=== PATIENT | female | born 1990 | race Caucasian/White ===

== ENCOUNTER 2020-01-05 15:38 | Emergency (ER) | payer MEDICAID, SELFPAY ==
[2020-01-05 15:46] VITALS: BP 149/85; PULSE 133; RESP 18; TEMP 37.1; O2SAT 99; BMI 27.4
--- NOTE | 2020-01-05 15:55 | XRR_ITS ---
PROCEDURE INFORMATION: Exam: XR Chest, 1 View Exam date and time: 01/05/2020 4:55 PM Age: 29 years old Clinical indication: Shortness of breath; Patient HX: Smoker; Additional info: Med clearance TECHNIQUE: Imaging protocol: XR of the chest Views: 1 view. COMPARISON: CR Chest 1 [place] [id number] 03/18/2016 3:08 AM FINDINGS: Lungs: Unremarkable. No consolidation. Pleural space: Unremarkable. No pleural effusion. No pneumothorax. Heart/Mediastinum: Unremarkable. No cardiomegaly. Bones/joints: Unremarkable. XR/XR chest 1V portable [id number] IMPRESSION: No acute findings.
[2020-01-05 16:04] VITALS: RESP 20
--- NOTE | 2020-01-05 16:12 | ED_ITS ---
Documented by User: River Cook DO 01/05/20 16:29 HPI - Psych General: Chief Complaint: Psychiatric Symptoms Stated Complaint: mhe Time Seen by Provider: 01/05/20 15:54 History of Present Illness: HPI Narrative: Patient extremely anxious and tearful in the emergency department. She states that she has been having thoughts of suicide for as long as 2 year she emptied the emergency room today because she states that she feels as if she is losing her mind and she cannot take that anymore. Patient has a prior history of suicidal attempt for which she was seen in the [facility]. MD complaint: suicidal ideation and feels depressed Onset (ago): year(s) Duration: constant and getting worse History of same: Yes Relieving factors: none Context: not taking psychiatric medications Associated psychiatric symptoms: depression and suicidal ideation Associated symptoms: Reports suicidal ideation and racing thoughts Treatments prior to arrival: none If self harm: admits thoughts of self harm Review of Systems General: Reports: 10 or more systems reviewed and unremarkable except in HPI and below Psych: Reports: suicidal ideation Physical Exam Const: COMMON NORMALS: patient oriented x3, no limitations and alert GENERAL APPEARANCE: disheveled HENMT: COMMON NORMALS: normocephalic, atraumatic, external ears normal and Normal external nose present HEAD & SCALP: normocephalic and atraumatic FACE & SINUS: normal facial exam NOSE: Normal external nose present EXTERNAL EAR: Yes external ears normal MOUTH: Normal oral and palatal mucosa present Neck/C-Spine: COMMON NORMALS: full ROM, no lymphadenopathy, supple, no meningeal signs and no JVD GENERAL: Yes normal visual inspection Resp: COMMON NORMALS: normal respiratory effort, No retractions, No use of accessory muscles and clear to auscultation bilaterally AUSCULTATION: clear to auscultation bilaterally Cardio: COMMON NORMALS: no JVD, regular rate and regular rhythm RATE: regular rate RHYTHM: regular rhythm GI: COMMON NORMALS: Normal to inspection, nondistended, normoactive bowel sounds present, Soft to palpation, non-tender, No hepatosplenomegaly present and no masses INSPECTION: Yes normal to inspection AUSCULTATION: Yes no rmoactive bowel sounds PALPATION: Yes Soft to palpation and Yes No hepatosplenomegaly present PERCUSSION: normal to percussion : COMMON NORMALS: Yes no CVA tenderness and Yes normal external appearance BLADDER/KIDNEY EXAM: Yes no CVA tenderness Back/Pelvis: COMMON NORMALS: no CVA tenderness, thoracic and lumbar spine normal to inspection, no thoracic nor lumbar tenderness, thoraco-lumbar ROM normal and straight leg raise negative bilaterally Extremity: COMMON NORMALS: normal to inspection, full ROM, capillary refill normal, no joint enlargement, no clubbing, cyanosis or edema, no calf tenderness and no pedal edema Neuro: COMMON NORMALS: patient oriented x3, moves all extremities, no focal motor deficits and no sensory deficits noted SENSORIUM/ORIENTATION: Yes alert MENINGEAL SIGNS: Yes no meningeal signs Psych: COMMON NORMALS: mental status grossly normal APPEARANCE: Yes disheveled ATTITUDE: Yes agitated ACTIVITY/MOTOR BEHAVIOR: Yes appropriate eye contact, Yes disorganized behavior and Yes restless SPEECH: Yes Pressured speech present MOOD & AFFECT: Yes depressed mood and Yes tearful THOUGHT PROCESS: disorganized THOUGHT CONTENT: Yes Suicidality present INSIGHT: Limited insight present (Psych) JUDGEMENT: Poor judgement present (Psych) Skin: COMMON NORMALS: no rashes or lesions noted, no wounds, turgor normal, no jaundice, no petechiae and no mottling GENERAL SKIN EXAM: no rashes or lesions noted and turgor normal MDM - Psych Lab Data: Labs: Lab Results 01/05/20 01/05/20 01/05/20 Range/Units 16:04 16:04 16:04 WBC (4.0-10.0) 10^3/ uL RBC (4.1-5.3) 10^6/u L Hgb (11.5-15.3) g/dL Hct (37.0-47.0) % MCV (81-99) fL MCH (28.0-34.0) pg MCHC (30.0-36.0) g/dL RDW (12.1-15.1) % Plt Count (130-400) 10^3/c mm MPV (7.4-10.4) fL Neut % (Auto) % Lymph % (Auto) % [place] % (Auto) % Eos % (Auto) % Baso % (Auto) % Neut # (Auto) (1.8-7.7) 10^3/u L Lymph # (Auto) (0.8-4.8) 10^3/u L [place] # (Auto) (0.2-0.9) 10^3/u L Eos # (Auto) (0.0-0.8) 10^3/u L Baso # (Auto) (0.0-0.1) 10^3/u L Nucleated RBC % (a uto) % Nucleated RBCs # /100WBC PT (10.5-13.3) SECO NDS INR (0.8-1.2) Sodium (136-145) mmol/L Potassium (3.5-5.1) mmol/L Chloride (98-107) mmol/L Carbon Dioxide (22-29) mmol/L Anion Gap (5-19) BUN (6-20) mg/dL Creatinine (0.5-0.9) mg/dL GFR Calculation (90-130) mL/min Glucose (65-115) mg/dL Calculated Osmolal ity (285-295) mOsm/k g Calcium (8.5-10.5) mg/dL Total Bilirubin (0.15-1.2) mg/dL AST (0-32) U/L ALT (0-33) U/L Alkaline Phosphata se (35-105) IU/L Total Protein (6.6-8.7) g/dL Albumin (3.5-5.2) g/dL Globulin (1.3-4.6) g/dL TSH (0.27-4.20) uIU/ mL HCG, Qual Negative (Negative) Urine Color Yellow (Yellow) Urine Appearance Clear (CLEAR) Urine pH 5 (5-7) Ur Specific Gravit y 1.005 (1.005-1.030) Urine Protein Neg (Negative) Urine Glucose (UA) Norm (Normal) Urine Ketones Negative (Negative) Urine Blood Neg (Negative) Urine Nitrate Negative (Negative) Urine Bilirubin Neg (NEGATIVE) Urine Urobilinogen Norm (Negative) mg/dL Ur Leukocyte Carrol ase Negative (Negative) Salicylates (3-10) mg/dL Urine Opiates Scre en Negative (Negative) ng/mL Acetaminophen (10-30) ug/mL Ur Barbiturates Sc reen Negative (Negative) ng/mL Ur Phencyclidine S crn Negative (Negative) ng/mL Ur Amphetamines Sc reen Negative (Negative) ng/mL U Benzodiazepines Scrn Negative (Negative) ng/mL Urine Cocaine Scre en Negative (Negative) ng/mL U Marijuana (THC) Screen Positive H (Negative) ng/mL Ethyl Alcohol (0-10) mg/dL 01/05/20 01/05/20 01/05/20 Range/Units 16:20 16:20 16:20 WBC 5.9 (4.0-10.0) 10^3/ uL RBC 4.45 (4.1-5.3) 10^6/u L Hgb 13.8 (11.5-15.3) g/dL Hct 42.3 (37.0-47.0) % MCV 95.1 (81-99) fL MCH 31.0 (28.0-34.0) pg MCHC 32.6 (30.0-36.0) g/dL RDW 13.5 (12.1-15.1) % Plt Count 289 (130-400) 10^3/c mm MPV 10.6 H (7.4-10.4) fL Neut % (Auto) 53.3 % Lymph % (Auto) 36.4 % [place] % (Auto) 5.9 % Eos % (Auto) 3.2 % Baso % (Auto) 0.7 % Neut # (Auto) 3.16 (1.8-7.7) 10^3/u L Lymph # (Auto) 2.2 (0.8-4.8) 10^3/u L [place] # (Auto) 0.4 (0.2-0.9) 10^3/u L Eos # (Auto) 0.2 (0.0-0.8) 10^3/u L Baso # (Auto) 0.0 (0.0-0.1) 10^3/u L Nucleated RBC % (a uto) 0 % Nucleated RBCs # 0.0 /100WBC PT 12.00 (10.5-13.3) SECO NDS INR 0.87 (0.8-1.2) Sodium 141 (136-145) mmol/L Potassium 3.6 (3.5-5.1) mmol/L Chloride 108 H (98-107) mmol/L Carbon Dioxide 21 L (22-29) mmol/L Anion Gap 15.6 (5-19) BUN 9 (6-20) mg/dL Creatinine 0.6 (0.5-0.9) mg/dL GFR Calculation 119.9 (90-130) mL/min Glucose 115 (65-115) mg/dL Calculated Osmolal ity 289 (285-295) mOsm/k g Calcium 9.3 (8.5-10.5) mg/dL Total Bilirubin 0.2 (0.15-1.2) mg/dL AST 14 (0-32) U/L ALT 10 (0-33) U/L Alkaline Phosphata se 71 (35-105) IU/L Total Protein 7.0 (6.6-8.7) g/dL Albumin 4.5 (3.5-5.2) g/dL Globulin 2.5 (1.3-4.6) g/dL TSH 0.52 (0.27-4.20) uIU/ mL HCG, Qual (Negative) Urine Color (Yellow) Urine Appearance (CLEAR) Urine pH (5-7) Ur Specific Gravit y (1.005-1.030) Urine Protein (Negative) Urine Glucose (UA) (Normal) Urine Ketones (Negative) Urine Blood (Negative) Urine Nitrate (Negative) Urine Bilirubin (NEGATIVE) Urine Urobilinogen (Negative) mg/dL Ur Leukocyte Carrol ase (Negative) Salicylates < 0.3 L (3-10) mg/dL Urine Opiates Scre en (Negative) ng/mL Acetaminophen < 5.0 L (10-30) ug/mL Ur Barbiturates Sc reen (Negative) ng/mL Ur Phencyclidine S crn (Negative) ng/mL Ur Amphetamines Sc reen (Negative) ng/mL U Benzodiazepines Scrn (Negative) ng/mL Urine Cocaine Scre en (Negative) ng/mL U Marijuana (THC) Screen (Negative) ng/mL Ethyl Alcohol 114 H (0-10) mg/dL Discharge Plan Discharge Patient Disposition: Xfer Psychiatric Hosp Clinical Impression: Suicidal ideation, Acute anxiety Depression Qualifiers: Depression Type: major depressive disorder Major depression recurrence: recurrent Active/Remission status: currently active Major depression episode severity: severe Psychotic features: with psychotic features Qualified Code(s): F33.3 - Major depressive disorder, recurrent, severe with psychotic symptoms Condition: Stable Referrals: Jessy Aceves [Primary Care Provider] - Coding Level of Care Code ED Consumer Services Advisor for [facility] Fwd Exam Comprehensive Documented by User: Igor Wilkerson DO [place] 01/06/20 02:13 HPI - Psych General: Chief Complaint: Psychiatric Symptoms Stated Complaint: mhe Time Seen by Provider: 01/05/20 15:54 MDM - Psych MDM Narrative: Medical decision making narrative: 29-year-old female checked out to me at shift change by Dr. Hoang. She has been medically cleared for psychiatric evaluation. We do not have any beds available at this facility. Staff is making multiple calls to different facilities. They did find a neuropsych bed and [facility]. She will go by ground ambulance there. She remained medically stable at the time of transfer. Lab Data: Labs: Lab Results 01/05/20 01/05/20 01/05/20 Range/Units 16:04 16:04 16:04 WBC (4.0-10.0) 10^3/ uL RBC (4.1-5.3) 10^6/u L Hgb (11.5-15.3) g/dL Hct (37.0-47.0) % MCV (81-99) fL MCH (28.0-34.0) pg MCHC (30.0-36.0) g/dL RDW (12.1-15.1) % Plt Count (130-400) 10^3/c mm MPV (7.4-10.4) fL Neut % (Auto) % Lymph % (Auto) % [place] % (Auto) % Eos % (Auto) % Baso % (Auto) % Neut # (Auto) (1.8-7.7) 10^3/u L Lymph # (Auto) (0.8-4.8) 10^3/u L [place] # (Auto) (0.2-0.9) 10^3/u L Eos # (Auto) (0.0-0.8) 10^3/u L Baso # (Auto) (0.0-0.1) 10^3/u L Nucleated RBC % (a uto) % Nucleated RBCs # /100WBC PT (10.5-13.3) SECO NDS INR (0.8-1.2) Sodium (136-145) mmol/L Potassium (3.5-5.1) mmol/L Chloride (98-107) mmol/L Carbon Dioxide (22-29) mmol/L Anion Gap (5-19) BUN (6-20) mg/dL Creatinine (0.5-0.9) mg/dL GFR Calculation (90-130) mL/min Glucose (65-115) mg/dL Calculated Osmolal ity (285-295) mOsm/k g Calcium (8.5-10.5) mg/dL Total Bilirubin (0.15-1.2) mg/dL AST (0-32) U/L ALT (0-33) U/L Alkaline Phosphata se (35-105) IU/L Total Protein (6.6-8.7) g/dL Albumin (3.5-5.2) g/dL Globulin (1.3-4.6) g/dL TSH (0.27-4.20) uIU/ mL HCG, Qual Negative (Negative) Urine Color Yellow (Yellow) Urine Appearance Clear (CLEAR) Urine pH 5 (5-7) Ur Specific Gravit y 1.005 (1.005-1.030) Urine Protein Neg (Negative) Urine Glucose (UA) Norm (Normal) Urine Ketones Negative (Negative) Urine Blood Neg (Negative) Urine Nitrate Negative (Negative) Urine Bilirubin Neg (NEGATIVE) Urine Urobilinogen Norm (Negative) mg/dL Ur Leukocyte Carrol ase Negative (Negative) Salicylates (3-10) mg/dL Urine Opiates Scre en Negative (Negative) ng/mL Acetaminophen (10-30) ug/mL Ur Barbiturates Sc reen Negative (Negative) ng/mL Ur Phencyclidine S crn Negative (Negative) ng/mL Ur Amphetamines Sc reen Negative (Negative) ng/mL U Benzodiazepines Scrn Negative (Negative) ng/mL Urine Cocaine Scre en Negative (Negative) ng/mL U Marijuana (THC) Screen Positive H (Negative) ng/mL Ethyl Alcohol (0-10) mg/dL 07/12/20 07/12/20 07/12/20 Range/Units 16:20 16:20 16:20 WBC 5.9 (4.0-10.0) 10^3/ uL RBC 4.45 (4.1-5.3) 10^6/u L Hgb 13.8 (11.5-15.3) g/dL Hct 42.3 (37.0-47.0) % MCV 95.1 (81-99) fL MCH 31.0 (28.0-34.0) pg MCHC 32.6 (30.0-36.0) g/dL RDW 13.5 (12.1-15.1) % Plt Count 289 (130-400) 10^3/c mm MPV 10.6 H (7.4-10.4) fL Neut % (Auto) 53.3 % Lymph % (Auto) 36.4 % [place] % (Auto) 5.9 % Eos % (Auto) 3.2 % Baso % (Auto) 0.7 % Neut # (Auto) 3.16 (1.8-7.7) 10^3/u L Lymph # (Auto) 2.2 (0.8-4.8) 10^3/u L [place] # (Auto) 0.4 (0.2-0.9) 10^3/u L Eos # (Auto) 0.2 (0.0-0.8) 10^3/u L Baso # (Auto) 0.0 (0.0-0.1) 10^3/u L Nucleated RBC % (a uto) 0 % Nucleated RBCs # 0.0 /100WBC PT 12.00 (10.5-13.3) SECO NDS INR 0.87 (0.8-1.2) Sodium 141 (136-145) mmol/L Potassium 3.6 (3.5-5.1) mmol/L Chloride 108 H (98-107) mmol/L Carbon Dioxide 21 L (22-29) mmol/L Anion Gap 15.6 (5-19) BUN 9 (6-20) mg/dL Creatinine 0.6 (0.5-0.9) mg/dL GFR Calculation 119.9 (90-130) mL/min Glucose 115 (65-115) mg/dL Calculated Osmolal ity 289 (285-295) mOsm/k g Calcium 9.3 (8.5-10.5) mg/dL Total Bilirubin 0.2 (0.15-1.2) mg/dL AST 14 (0-32) U/L ALT 10 (0-33) U/L Alkaline Phosphata se 71 (35-105) IU/L Total Protein 7.0 (6.6-8.7) g/dL Albumin 4.5 (3.5-5.2) g/dL Globulin 2.5 (1.3-4.6) g/dL TSH 0.52 (0.27-4.20) uIU/ mL HCG, Qual (Negative) Urine Color (Yellow) Urine Appearance (CLEAR) Urine pH (5-7) Ur Specific Gravit y (1.005-1.030) Urine Protein (Negative) Urine Glucose (UA) (Normal) Urine Ketones (Negative) Urine Blood (Negative) Urine Nitrate (Negative) Urine Bilirubin (NEGATIVE) Urine Urobilinogen (Negative) mg/dL Ur Leukocyte Carrol ase (Negative) Salicylates < 0.3 L (3-10) mg/dL Urine Opiates Scre en (Negative) ng/mL Acetaminophen < 5.0 L (10-30) ug/mL Ur Barbiturates Sc reen (Negative) ng/mL Ur Phencyclidine S crn (Negative) ng/mL Ur Amphetamines Sc reen (Negative) ng/mL U Benzodiazepines Scrn (Negative) ng/mL Urine Cocaine Scre en (Negative) ng/mL U Marijuana (THC) Screen (Negative) ng/mL Ethyl Alcohol 114 H (0-10) mg/dL Discharge Plan Discharge Patient Disposition: Xfer Psychiatric Hosp Clinical Impression: Suicidal ideation, Acute anxiety Depression Qualifiers: Depression Type: major depressive disorder Major depression recurrence: recurrent Active/Remission status: currently active Major depression episode severity: severe Psychotic features: with psychotic features Qualified Code(s): F33.3 - Major depressive disorder, recurrent, severe with psychotic symptoms Condition: Stable Referrals: Jessy Aceves [Primary Care Provider] - Coding Level of Care Code ED Consumer Services Advisor for [facility] Fwd Exam Comprehensive
[2020-01-05] MEDS: LORazepam 1 mg Tablet PO (16:13)
[2020-01-05 16:18] LABS: Add Urine Microscopic? NO
[2020-01-05 16:24] LABS: HCG Qualitative Urine. Negative (Negative)
[2020-01-05 16:29] LABS: Basophils % 0.7 %; Eosinophils # 0.2 10^3/uL (0.0-0.8); Eosinophils % 3.2 %; Hematocrit 42.3 % (37.0-47.0); Hemoglobin 13.8 g/dL (11.5-15.3); Lymphocytes # 2.2 10^3/uL (0.8-4.8); Lymphocytes % 36.4 %; Mean Corpuscular HGB Conc 32.6 g/dL (30.0-36.0); Mean Corpuscular Volume 95.1 fL (81-99); Mean Platelet Volume 10.6 fL (7.4-10.4); Monocytes # 0.4 10^3/uL (0.2-0.9); Monocytes % 5.9 %; Neutrophils # 3.16 10^3/uL (1.8-7.7); Neutrophils % 53.3 %; Nucleated Red Blood Cells % 0 %; Platelet Count 289 10^3/cmm (130-400); Red Blood Count 4.45 10^6/uL (4.1-5.3); Red Cell Distribution Width 13.5 % (12.1-15.1); White Blood Count 5.9 10^3/uL (4.0-10.0)
[2020-01-05 16:30] LABS: Bilirubin Urine Neg (NEGATIVE); Blood Urine Neg (Negative); Glucose Urine UA Norm (Normal); Ketones Urine Negative (Negative); Leukocyte Esterase Urine Negative (Negative); Nitrate Urine Negative (Negative); Protein Urine Neg (Negative); Specific Gravity, Urine 1.005 (1.005-1.030); Urine Appearance Clear (CLEAR); Urine Color Yellow (Yellow); Urobilinogen Urine Norm (Negative); pH Urine 5 (5-7)
[2020-01-05 16:39] LABS: Amphetamines Screen Urine Negative (Negative); Barbiturates Screen Urine Negative (Negative); Benzodiazepines Screen Urine Negative (Negative); Cocaine Screen Urine Negative (Negative); Opiate Screen Urine Negative (Negative); PCP Screen Urine Negative (Negative); THC Screen Urine Positive (Negative)
[2020-01-05 16:40] LABS: INR 0.87 (0.8-1.2)
[2020-01-05 16:56] LABS: Alanine Aminotransferase 10 U/L (0-33); Albumin Level 4.5 g/dL (3.5-5.2); Alcohol Level 114 mg/dL (0-10); Alkaline Phosphatase 71 IU/L (35-105); Anion Gap 15.6 (5-19); Aspartate Amino Transferase 14 U/L (0-32); Blood Urea Nitrogen 9 mg/dL (6-20); Calcium 9.3 mg/dL (8.5-10.5); Carbon Dioxide 21 mmol/L (22-29); Chloride 108 mmol/L (98-107); Globulin 2.5 g/dL (1.3-4.6); Glomerular Filtration Rate 119.9 mL/min (90-130); Glucose 115 mg/dL (65-115); Osmolality Calculated 289 mOsm/kg (285-295); Potassium 3.6 mmol/L (3.5-5.1); Sodium 141 mmol/L (136-145); Thyroid Stimulating Hormone 0.52 uIU/mL (0.27-4.20); Total Bilirubin 0.2 mg/dL (0.15-1.2)
[2020-01-05 17:00] LABS: Acetaminophen < 5.0 ug/mL (10-30); Salicylate < 0.3 mg/dL (3-10)
[2020-01-06 04:00] VITALS: BP 119/80; PULSE 80; RESP 14; TEMP 36.8
[2020-01-06 14:06] VITALS: BP 118/72; PULSE 76; RESP 18; O2SAT 99
== END 2020-01-06 12:30 ==
PROVIDERS: Family Medicine; Emergency Provider Emergency Medicine; Family Provider Nurse Practitioner Family; PCP Nurse Practitioner Family
DX: R45.851 Suicidal ideations (principal); F33.3 Major depressive disorder, recurrent, severe with psychotic symptoms; F41.9 Anxiety disorder, unspecified
CPT/HCPCS: 12345; 36415; 71045; 80053; 80306; 80307; 81003; 81025; 84443; 85025; 85610; 99284

== ENCOUNTER 2020-02-09 23:49 | Inpatient (IN) | payer MEDICAID, SELFPAY ==
[2020-02-09 23:51] VITALS: BP 103/68; PULSE 94; RESP 18; TEMP 36.7; O2SAT 94; BMI 26.5
--- NOTE | 2020-02-09 23:59 | ECG_ITS ---
[facility] Test Date: 2020-02-10 Pat Name: Maddi Crawley Department: Room: Gender: Female Polysomnographer: : 1990 Requested By: Igor Wilkerson Order Number: [id number] Ba MD: Rony Maradiaga M.D. Measurements Intervals [place] Rate: 103 P: 53 SD: 111 QRS: 58 QRSD: 87 T: 51 QT: 337 QTc: 442 Interpretive Statements SINUS TACHYCARDIA WITH SHORT SD INTERVAL ABNORMAL RHYTHM ECG No previous ECG available for comparison Electronically Signed On 02-10-2020 18:57:56 CDT by Rony Maradiaga M.D. [email or web address] medical [id number]
[2020-02-10 00:12] LABS: Basophils % 0.5 %; Eosinophils # 0.2 10^3/uL (0.0-0.8); Eosinophils % 2.7 %; Hematocrit 37.3 % (37.0-47.0); Hemoglobin 12.1 g/dL (11.5-15.3); Lymphocytes # 2.8 10^3/uL (0.8-4.8); Lymphocytes % 33.3 %; Mean Corpuscular HGB Conc 32.4 g/dL (30.0-36.0); Mean Corpuscular Hemoglobin 30.9 pg (28.0-34.0); Mean Corpuscular Volume 95.4 fL (81-99); Mean Platelet Volume 9.8 fL (7.4-10.4); Monocytes # 0.5 10^3/uL (0.2-0.9); Monocytes % 6.4 %; Neutrophils # 4.76 10^3/uL (1.8-7.7); Neutrophils % 56.3 %; Nucleated Red Blood Cells % 0 %; Platelet Count 332 10^3/cmm (130-400); Red Blood Count 3.91 10^6/uL (4.1-5.3); Red Cell Distribution Width 13.4 % (12.1-15.1); White Blood Count 8.5 10^3/uL (4.0-10.0)
[2020-02-10] MEDS: sodium chloride 0.9% 1,000 ML 999 ML IV (00:13)
[2020-02-10 00:16] LABS: HCG Qualitative Urine. Negative (Negative)
[2020-02-10 00:25] LABS: Add Urine Microscopic? YES; Amphetamines Screen Urine Positive (Negative); Barbiturates Screen Urine Negative (Negative); Benzodiazepines Screen Urine Positive (Negative); Bilirubin Urine Neg (NEGATIVE); Blood Urine 3+ (Negative); Cocaine Screen Urine Negative (Negative); Glucose Urine UA Norm (Normal); Ketones Urine Negative (Negative); Leukocyte Esterase Urine Negative (Negative); Nitrate Urine Negative (Negative); Opiate Screen Urine Negative (Negative); PCP Screen Urine Positive (Negative); Protein Urine Neg (Negative); Specific Gravity, Urine 1.015 (1.005-1.030); THC Screen Urine Positive (Negative); Urine Color Yellow (Yellow); Urobilinogen Urine Norm (Negative); pH Urine 6 (5-7)
[2020-02-10 00:28] LABS: Add Urine Culture? No; Amorphous Sediment Urine 2+; Bacteria Urine 1+; Coarse Granular Casts Urine 0-4 /lpf; Mucus Urine 1+; Squamous Epithelial Cell Urine 15-25 (0-5); WBC Urine 0-4 /hpf (0-5)
[2020-02-10 00:39] LABS: Alanine Aminotransferase 14 U/L (0-33); Albumin Level 4.1 g/dL (3.5-5.2); Alcohol Level 15 mg/dL (0-10); Alkaline Phosphatase 80 IU/L (35-105); Anion Gap 15.9 (5-19); Aspartate Amino Transferase 18 U/L (0-32); Blood Urea Nitrogen 11 mg/dL (6-20); Calcium 8.7 mg/dL (8.5-10.5); Carbon Dioxide 23 mmol/L (22-29); Chloride 105 mmol/L (98-107); Globulin 2.6 g/dL (1.3-4.6); Glomerular Filtration Rate 75.1 mL/min (90-130); Glucose 92 mg/dL (65-115); Osmolality Calculated 286 mOsm/kg (285-295); Potassium 3.9 mmol/L (3.5-5.1); Salicylate 0.5 mg/dL (3-10); Sodium 140 mmol/L (136-145); Total Bilirubin 0.2 mg/dL (0.15-1.2); Total Protein 6.7 g/dL (6.6-8.7)
[2020-02-10 00:43] LABS: Acetaminophen < 5.0 ug/mL (10-30)
--- NOTE | 2020-02-10 01:11 | W.ED.PSYCH ---
HPI - Psych General: Chief Complaint: Psychiatric Symptoms Stated Complaint: SI Time Seen by Provider: 02/09/20 23:58 History of Present Illness: MD complaint: suicidal ideation and feels depressed Onset (ago): hour(s) Duration: constant History of same: Yes Relieving factors: none Exacerbating factors: drug use Context: recent alcohol abuse, recent drug abuse and not taking psychiatric medications Associated psychiatric symptoms: depression and suicidal ideation Associated symptoms: Reports suicidal ideation; Deny homicidal ideation If self harm: admits thoughts of self harm and intentional overdose Review of Systems Const: Denies: fever(s) or chills Eyes: Denies: change in vision or blurry vision ENMT: Denies: swelling of lips/tongue, bleeding gums, dental pain, change in hearing, epistaxis, post nasal drip or sinus pain Card: Denies: chest pain, palpitations, irregular heart rhythm or orthopnea Resp: Denies: dyspnea, productive cough, non-productive cough or wheezing GI: Denies: abdominal pain, nausea or vomiting : Denies: dysuria, urinary frequency, urinary urgency or hematuria Musc: Denies: neck pain or back pain Skin/Breast: Denies: rash or erythema Neuro: Denies: headache(s), dizziness or vertigo Psych: Reports: suicidal ideation; Denies: homicidal ideation [facility] PFSH: Medical History (Updated 02/10/20 @ 01:16 by Igor Echavarria DO) Alcohol use disorder, mild, abuse Generalized anxiety disorder Major depressive disorder Methamphetamine use disorder, mild, abuse Social History (Updated 01/30/20 @ 10:00 by Radha Dorsey LPN) Smoking and tobacco status: current every day smoker cigarettes Packs smoked per day: 1 Years cigarettes smoked: 11 Female Reproductive History: Date of last menstrual period: 02/09/20 Physical Exam Const: ORIENTATION/CONSCIOUSNESS: Yes oriented to person, Yes oriented to place and Yes oriented to time HENMT: COMMON NORMALS: normocephalic, external ears normal and Normal external nose present HEAD & SCALP: normocephalic FACE & SINUS: normal facial exam NOSE: Normal external nose present and No nasal discharge present EXTERNAL EAR: Yes external ears normal MOUTH: tongue normal Eye: COMMON NORMALS: Equal, round and reactive pupils present, EOMs intact bilaterally and conjunctivae normal EYELID: eyelids normal CONJUNCTIVA: Yes conjunctivae normal PUPIL: Yes Equal, round and reactive pupils present Neck/C-Spine: GENERAL: No tracheal deviation Chest: COMMONS NORMALS: normal inspection of the chest CHEST: No tenderness Resp: COMMON NORMALS: clear to auscultation bilaterally EFFORT & INSPECTION: No tachypneic, No respiratory distress, No retractions, No uses accessory muscles and No tracheal deviation AUSCULTATION: clear to auscultation bilaterally, no rhonchi, no wheezes and lung sounds not diminished Cardio: COMMON NORMALS: regular rate and regular rhythm RATE: regular rate RHYTHM: regular rhythm HEART SOUNDS: no murmurs PERIPHERAL PULSES: radial pulses present GI: INSPECTION: No abdominal distension AUSCULTATION: No Hyperactive bowel sounds present and No Hypoactive bowel sounds present PALPATION: No Guarding due to palpation present (GI) and No Rigid due to palpation PERCUSSION: no dullness to percussion and no tympanic to percussion Neuro: SENSORIUM/ORIENTATION: Yes oriented to person, Yes oriented to place and Yes oriented to time Psych: COMMON NORMALS: speech normal APPEARANCE: Yes grossly normal ATTITUDE: Yes calm ACTIVITY/MOTOR BEHAVIOR: Yes appropriate eye contact SPEECH: Yes normal speech MOOD & AFFECT: Yes depressed mood THOUGHT PROCESS: Other thought process findings present THOUGHT CONTENT: Yes Suicidality present Skin: COMMON NORMALS: no rashes or lesions noted GENERAL SKIN EXAM: no rashes or lesions noted MDM - Psych MDM Narrative: Medical decision making narrative: Patient is positive for multiple substances on urine drug screen. Otherwise her laboratory is benign. She is resting comfortably. She has been cooperative and calm. She is wanting to come in for evaluation. She has stopped taking her medications recently. She appears medically stable. Lab Data: Labs: Lab Results 02/09/20 02/09/20 02/10/20 Range/Units 23:59 23:59 00:06 WBC 8.5 (4.0-10.0) 10^3/ uL RBC 3.91 L (4.1-5.3) 10^6/u L Hgb 12.1 (11.5-15.3) g/dL Hct 37.3 (37.0-47.0) % MCV 95.4 (81-99) fL MCH 30.9 (28.0-34.0) pg MCHC 32.4 (30.0-36.0) g/dL RDW 13.4 (12.1-15.1) % Plt Count 332 (130-400) 10^3/c mm MPV 9.8 (7.4-10.4) fL Neut % (Auto) 56.3 % Lymph % (Auto) 33.3 % [place] % (Auto) 6.4 % Eos % (Auto) 2.7 % Baso % (Auto) 0.5 % Neut # (Auto) 4.76 (1.8-7.7) 10^3/u L Lymph # (Auto) 2.8 (0.8-4.8) 10^3/u L [place] # (Auto) 0.5 (0.2-0.9) 10^3/u L Eos # (Auto) 0.2 (0.0-0.8) 10^3/u L Baso # (Auto) 0.0 (0.0-0.1) 10^3/u L Nucleated RBC % (a uto) 0 % Nucleated RBCs # 0.0 /100WBC Sodium 140 (136-145) mmol/L Potassium 3.9 (3.5-5.1) mmol/L Chloride 105 (98-107) mmol/L Carbon Dioxide 23 (22-29) mmol/L Anion Gap 15.9 (5-19) BUN 11 (6-20) mg/dL Creatinine 0.9 (0.5-0.9) mg/dL GFR Calculation 75.1 L (90-130) mL/min Glucose 92 (65-115) mg/dL Calculated Osmolal ity 286 (285-295) mOsm/k g Calcium 8.7 (8.5-10.5) mg/dL Total Bilirubin 0.2 (0.15-1.2) mg/dL AST 18 (0-32) U/L ALT 14 (0-33) U/L Alkaline Phosphata se 80 (35-105) IU/L Total Protein 6.7 (6.6-8.7) g/dL Albumin 4.1 (3.5-5.2) g/dL Globulin 2.6 (1.3-4.6) g/dL HCG, Qual Negative (Negative) Urine Color (Yellow) Urine Appearance (CLEAR) Urine pH (5-7) Ur Specific Gravit y (1.005-1.030) Urine Protein (Negative) Urine Glucose (UA) (Normal) Urine Ketones (Negative) Urine Blood (Negative) Urine Nitrate (Negative) Urine Bilirubin (NEGATIVE) Urine Urobilinogen (Negative) mg/dL Ur Leukocyte Carrol ase (Negative) Urine RBC (0-2) /hpf Urine WBC (0-5) /hpf Ur Squamous Epith Cells (0-5) Amorphous Sediment Urine Bacteria (NONE) Coarse Granular Ca sts /lpf Urine Mucus Salicylates 0.5 L (3-10) mg/dL Urine Opiates Scre en (Negative) ng/mL Acetaminophen < 5.0 L (10-30) ug/mL Ur Barbiturates Sc reen (Negative) ng/mL Ur Phencyclidine S crn (Negative) ng/mL Ur Amphetamines Sc reen (Negative) ng/mL U Benzodiazepines Scrn (Negative) ng/mL Urine Cocaine Scre en (Negative) ng/mL U Marijuana (THC) Screen (Negative) ng/mL Ethyl Alcohol 15 H (0-10) mg/dL 02/10/20 02/10/20 Range/Units 00:06 00:06 WBC (4.0-10.0) 10^3/ uL RBC (4.1-5.3) 10^6/u L Hgb (11.5-15.3) g/dL Hct (37.0-47.0) % MCV (81-99) fL MCH (28.0-34.0) pg MCHC (30.0-36.0) g/dL RDW (12.1-15.1) % Plt Count (130-400) 10^3/c mm MPV (7.4-10.4) fL Neut % (Auto) % Lymph % (Auto) % [place] % (Auto) % Eos % (Auto) % Baso % (Auto) % Neut # (Auto) (1.8-7.7) 10^3/u L Lymph # (Auto) (0.8-4.8) 10^3/u L [place] # (Auto) (0.2-0.9) 10^3/u L Eos # (Auto) (0.0-0.8) 10^3/u L Baso # (Auto) (0.0-0.1) 10^3/u L Nucleated RBC % (a uto) % Nucleated RBCs # /100WBC Sodium (136-145) mmol/L Potassium (3.5-5.1) mmol/L Chloride (98-107) mmol/L Carbon Dioxide (22-29) mmol/L Anion Gap (5-19) BUN (6-20) mg/dL Creatinine (0.5-0.9) mg/dL GFR Calculation (90-130) mL/min Glucose (65-115) mg/dL Calculated Osmolal ity (285-295) mOsm/k g Calcium (8.5-10.5) mg/dL Total Bilirubin (0.15-1.2) mg/dL AST (0-32) U/L ALT (0-33) U/L Alkaline Phosphata se (35-105) IU/L Total Protein (6.6-8.7) g/dL Albumin (3.5-5.2) g/dL Globulin (1.3-4.6) g/dL HCG, Qual (Negative) Urine Color Yellow (Yellow) Urine Appearance Sl cloudy A (CLEAR) Urine pH 6 (5-7) Ur Specific Gravit y 1.015 (1.005-1.030) Urine Protein Neg (Negative) Urine Glucose (UA) Norm (Normal) Urine Ketones Negative (Negative) Urine Blood 3+ H (Negative) Urine Nitrate Negative (Negative) Urine Bilirubin Neg (NEGATIVE) Urine Urobilinogen Norm (Negative) mg/dL Ur Leukocyte Carrol ase Negative (Negative) Urine RBC 10-15 H (0-2) /hpf Urine WBC 0-4 H (0-5) /hpf Ur Squamous Epith Cells 15-25 H (0-5) Amorphous Sediment 2+ Urine Bacteria 1+ H (NONE) Coarse Granular Ca sts 0-4 H /lpf Urine Mucus 1+ Salicylates (3-10) mg/dL Urine Opiates Scre en Negative (Negative) ng/mL Acetaminophen (10-30) ug/mL Ur Barbiturates Sc reen Negative (Negative) ng/mL Ur Phencyclidine S crn Positive H (Negative) ng/mL Ur Amphetamines Sc reen Positive H (Negative) ng/mL U Benzodiazepines Scrn Positive H (Negative) ng/mL Urine Cocaine Scre en Negative (Negative) ng/mL U Marijuana (THC) Screen Positive H (Negative) ng/mL Ethyl Alcohol (0-10) mg/dL Discharge Plan Discharge Patient Disposition: Admitted As Inpatient Clinical Impression: Suicidal ideation, Polysubstance abuse Condition: Stable Coding Level of Care Code ED [employer] F[employer] Exam Comprehensive
[2020-02-10 01:59] VITALS: BP 100/69; PULSE 81; RESP 17; TEMP 37.1; O2SAT 96
[2020-02-10 06:00] VITALS: BP 97/64; PULSE 74; RESP 18; TEMP 36.7; O2SAT 95
--- NOTE | 2020-02-10 12:05 | PC.RESP ---
Smoking Cessation information sent to patient.
[2020-02-10 13:13] VITALS: BP 96/64; PULSE 89; RESP 18; TEMP 37.2; O2SAT 95
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
[2020-02-10 20:08] VITALS: BP 94/59; PULSE 63; RESP 15; TEMP 36.7; O2SAT 97
[2020-02-10] MEDS: hyDROXYzine 25 mg Capsule 50 MG PO (20:47)
[2020-02-10] MEDS: trazodone 50 mg Tablet PO (20:47)
[2020-02-10] MEDS: OLANZapine 5 mg ODT PO (20:48)
[2020-02-11 06:00] VITALS: BP 84/56; PULSE 63; RESP 15; TEMP 36.7; O2SAT 97
[2020-02-11] MEDS: ziprasidone hcl 20 mg Capsule PO ×2 (06:47→16:36)
[2020-02-11] MEDS: escitalopram 10 mg Tablet 20 MG PO (08:23)
[2020-02-11 13:45] VITALS: BP 105/72; PULSE 65; RESP 18; TEMP 37.2; O2SAT 98
--- NOTE | 2020-02-11 14:52 | P.PN_ITS ---
Subjective NPU Subjective: Interval history: The patient presents today very upset and overwhelmed. She feels like the medication has been helpful getting it started. She is really upset about her circumstances at home and trying to figure out how to get this right this time. We discussed the importance of her working with the social work team and treatment team to figure out how to get her connected with resources to help avoid this continuing. We also discussed the importance of her getting connected with Medicaid so that she can continue the medication and not have a repeat of this situation. She reported a plan to do just that and reports that she is still struggling but imagines she will feel a lot better once the medication gets back in her system. Mental Status Exam MSE Comments: This is a well-nourished, well-developed, white female, with adequate dress, grooming, and eye contact. No abnormal movements except for psychomotor agitation. Cooperative with exam in mild distress. Speech was normal rate, decreased volume. Mood described as depressed; affect congruent. Thought process, organized. Thought content: patient does endorse some suicidal thinking. There were no delusions reported or noted, patient denied any auditory or visual hallucinations. Attention, concentration, and memory appear intact but were not formally tested. She is alert and oriented times three. Insight and judgment are impaired. Impulse control is impaired. Vitals/I&O/Wt Last Vital Signs Temp 98.6 F 02/11/20 21:13 Pulse 69 02/11/20 21:13 Resp 13 02/11/20 21:13 BP 92/62 02/11/20 21:13 Pulse Ox 97 02/11/20 21:13 Data NPU : 02/09/20 23:59 02/09/20 23:59 A&P Assessment and plan (1) Methamphetamine use disorder, mild, abuse: Status: Acute (2) Alcohol use disorder, mild, abuse: Status: Acute (3) Generalized anxiety disorder: Status: Acute (4) Major depressive disorder: Status: Acute Qualifiers: Active/Remission status: currently active Major depression episode s everity: moderate Major depression recurrence: recurrent Qualified Code(s): F33.1 - Major depressive disorder, recurrent, moderate (5) Cluster B personality disorder: Status: Acute Additional A&P Information This is a 29 year old, white female, who presents endorsing being off of medication, having lethality off of her medication, who presents with recent diagnoses of major depressive disorder, single episode, generalized anxiety disorder, alcohol use disorder, mild, and methamphetamine use disorder, who presents open to restarting medication and getting back on track with her treatment. Continue current medication except: We will consider increases. Encourage individual, group, and milieu therapy. Continue q-15 minute checks for safety. Recommend sober living treatment at the highest level of care to which the patient is willing to commit. Involuntary Hold Information 96 Hour Hold: 96 Hour Involuntary Admission: No Attestations NPU Medical Necessity Statement*: Inpatient hospitalization is medically necessary and the clinically appropriate intervention at this time. We will monitor medication and titrate as indicated. She will be in the hospital for over two midnights. Likely length of stay is 2-4 days. Coding Level of Care Code Acute Medical Office Technologist for Gita Jorge Diagnoses Methamphetamine use disorder, mild, abuse F15.10 Alcohol use disorder, mild, abuse F10.10 Generalized anxiety disorder F41.1 Major depressive disorder F33.1 Active/Remission status: currently active Major depression episode severity: moderate Major depression recurrence: recurrent Cluster B personality disorder F60.89
[2020-02-11] MEDS: hyDROXYzine 25 mg Capsule 50 MG PO ×2 (18:28→21:17)
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
[2020-02-11 21:13] VITALS: BP 92/62; PULSE 69; RESP 13; TEMP 37; O2SAT 97
[2020-02-11] MEDS: trazodone 50 mg Tablet PO (21:17)
[2020-02-12 06:00] VITALS: BP 106/73; PULSE 67; RESP 14; TEMP 36.5; O2SAT 96
[2020-02-12] MEDS: ziprasidone hcl 20 mg Capsule PO ×2 (06:55→16:37)
[2020-02-12] MEDS: escitalopram 10 mg Tablet 20 MG PO (08:44)
[2020-02-12 14:00] VITALS: BP 111/71; PULSE 79; RESP 18; TEMP 36.6; O2SAT 96
[2020-02-12] MEDS: hyDROXYzine 25 mg Capsule 50 MG PO (16:37)
--- NOTE | 2020-02-12 16:38 | PC.NURSE ---
PRN VISTARIL VISTARIL 50MG PO PER PATIENT C/O ANXIETY. WILL CONTINUE TO MONITOR FOR MEDICATION EFFECTIVENESS.
--- NOTE | 2020-02-12 16:45 | P.PN_ITS ---
Subjective NPU Subjective: Interval history: The patient presents today reporting that she is feeling somewhat better, reporting that she is still rather anxious especially about what she is going to do next. She reports she does not know what to do. We discussed the importance of her starting with working with us to get her medications to the right place and then work on things that she can actually do, not get focused on what the problems are, but get focused on what are the things that she can do to make them better. If she does those things, then she can feel comfortable that she is doing all she can to get to a better place. She continued to endorse that she was anxious. We talked about her utilizing the prn medications, non-addictive medications that are available to her, and she understood and agreed to proceed as is documented in this note. Mental Status Exam MSE Comments: This is a well-nourished, well-developed, white female, with adequate dress, grooming, and eye contact. No abnormal movements except for psychomotor agitation. Cooperative with exam in mild distress. Speech was normal rate, decreased volume. Mood described as anxious; affect congruent. Thought process, organized. Thought content: patient does endorse some suicidal thinking, but reported some improvement. There were no delusions reported or noted, patient denied any auditory or visual hallucinations. Attention, concentration, and memory appear intact but were not formally tested. She is alert and oriented times three. Insight and judgment are impaired, but improving. Impulse control is impaired. Vitals/I&O/Wt Last Vital Signs Temp 97.8 F 02/12/20 14:00 Pulse 79 02/12/20 14:00 Resp 18 02/12/20 14:00 BP 111/71 02/12/20 14:00 Pulse Ox 96 02/12/20 14:00 Data NPU : 02/09/20 23:59 02/09/20 23:59 A&P Assessment and plan (1) Methamphetamine use disorder, mild, abuse: Status: Acute (2) Alcohol use disorder, mild, abuse: Status: Acute (3) Generalized anxiety disorder: Status: Acute (4) Major depressive disorder: Status: Acute Qualifiers: Active/Remission status: currently active Major depression episode severity: moderate Major depression recurrence: recurrent Qualified Code(s): F33.1 - Major depressive disorder, recurrent, moderate (5) Cluster B personality disorder: Status: Acute Additional A&P Information This is a 29 year old, white female, who presents endorsing being off of medication, having lethality off of her medication, who presents with recent diagnoses of major depressive disorder, single episode, generalized anxiety disorder, alcohol use disorder, mild, and methamphetamine use disorder, who presents open to restarting medication and getting back on track with her treatment. Continue current medication except: We will consider increases. Encourage individual, group, and milieu therapy. Continue q-15 minute checks for safety. Recommend sober living treatment at the highest level of care to which the patient is willing to commit. Involuntary Hold Information 96 Hour Hold: 96 Hour Involuntary Admission: No Attestations NPU Medical Necessity Statement*: Inpatient hospitalization is medically necessary and the clinically appropriate intervention at this time. We will monitor medication and titrate as indicated. Likely length of stay is 1-3 days. Coding Level of Care Code Acute Senior Research Consultant for Gita Fwd Diagnoses Methamphetamine use disorder, mild, abuse F15.10 Alcohol use disorder, mild, abuse F10.10 Generalized anxiety disorder F41.1 Major depressive disorder F33.1 Active/Remission status: currently active Major depression episode severity: moderate Major depression recurrence: recurrent Cluster B personality disorder F60.89
[2020-02-12 20:24] VITALS: BP 105/68; PULSE 72; RESP 17; TEMP 37.2; O2SAT 95
[2020-02-13 06:00] VITALS: BP 99/68; PULSE 66; RESP 18; TEMP 36.4; O2SAT 97
[2020-02-13] MEDS: ziprasidone hcl 20 mg Capsule PO ×2 (06:54→11:06)
[2020-02-13] MEDS: escitalopram 10 mg Tablet 20 MG PO (08:57)
[2020-02-13 14:00] VITALS: BP 110/75; PULSE 97; RESP 18; TEMP 37.1; O2SAT 96
--- NOTE | 2020-02-13 15:50 | PM.NPN ---
Subjective NPU Subjective: Interval history: Maddi presented today reporting a lot of anxiety. We discussed the risks, benefits, and alternatives of increasing her Geodon to 40 mg po bid at meals, given that there is a population of people that can get anxiety/akathisia from the lower dose of Geodon. She understood and agreed to proceed with the increase in the dosing. She reported that she was working with her family to get a reasonable option for discharge. We discussed working with the treatment team for a likely discharge tomorrow. She was on board with that as a plan. I feel like she is doing better on the medication and would likely be able to manage outside the hospital safely. Mental Status Exam MSE Comments: This is a well-nourished, well-developed, white female, with adequate dress, grooming, and eye contact. No abnormal movements. Cooperative with exam in mild distress. Speech was normal rate, decreased volume. Mood described as still anxious; affect congruent. Thought process, organized. Thought content: patient denied suicidal or homicidal ideations. There were no delusions reported or noted, patient denied any auditory or visual hallucinations. Attention, concentration, and memory appear intact but were not formally tested. She is alert and oriented times three. Insight and judgment are improving. Impulse control is impaired, but improving. Vitals/I&O/Wt Last Vital Signs Temp 98.4 F 02/13/20 20:47 Pulse 61 02/13/20 20:47 Resp 16 02/13/20 20:47 BP 99/56 02/13/20 20:47 Pulse Ox 97 02/13/20 20:47 Data NPU : 02/09/20 23:59 02/09/20 23:59 A&P Assessment and plan (1) Methamphetamine use disorder, mild, abuse: Status: Acute (2) Alcohol use disorder, mild, abuse: Status: Acute (3) Generalized anxiety disorder: Status: Acute (4) Major depressive disorder: Status: Acute Qualifiers: Active/Remission status: currently active Major depression episode severity: moderate Major depression recurrence: recurrent Qualified Code(s): F33.1 - Major depressive disorder, recurrent, moderate (5) Cluster B personality disorder: Status: Acute Additional A&P Information This is a 29 year old, white female, who presents endorsing being off of medication, having lethality off of her medication, who presents with recent diagnoses of major depressive disorder, single episode, generalized anxiety disorder, alcohol use disorder, mild, and methamphetamine use disorder, who presents open to restarting medication and getting back on track with her treatment. Continue current medication except: increase geodon to 40 mg po bid Encourage individual, group, and milieu therapy. Continue q-15 minute checks for safety. Recommend sober living treatment at the highest level of care to which the patient is willing to commit. Involuntary Hold Information 96 Hour Hold: 96 Hour Involuntary Admission: No Attestations NPU Medical Necessity Statement*: Inpatient hospitalization is medically necessary and the clinically appropriate intervention at this time. We will monitor medication and titrate as indicated. Likely length of stay is 1-2 days. Coding Level of Care Code Acute Electrical Continuity Tester for Gita Jorge Diagnoses Methamphetamine use disorder, mild, abuse F15.10 Alcohol use disorder, mild, abuse F10.10 Generalized anxiety disorder F41.1 Major depressive disorder F33.1 Active/Remission status: currently active Major depression episode severity: moderate Major depression recurrence: recurrent Cluster B personality disorder F60.89
[2020-02-13] MEDS: ziprasidone hcl 40 mg Capsule PO (17:33)
[2020-02-13] MEDS: nicotine 2 mg Gum BUCCAL (18:07)
[2020-02-13 20:47] VITALS: BP 99/56; PULSE 61; RESP 16; TEMP 36.9; O2SAT 97
[2020-02-14 06:00] VITALS: BP 101/69; PULSE 82; RESP 18; TEMP 36.6; O2SAT 97
[2020-02-14] MEDS: ziprasidone hcl 40 mg Capsule PO (06:13)
[2020-02-14] MEDS: escitalopram 10 mg Tablet 20 MG PO (07:40)
[2020-02-14 11:24] VITALS: BP 101/69; PULSE 82; RESP 18; TEMP 36.6; O2SAT 97
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
== END 2020-02-14 13:25 | disposition home or self-care (01) | DRG 885 ==
LOC: ER 02-10 01:16 → NP 02-10 01:30
PROVIDERS: Admitting Provider Psychiatry & Neurology Psychiatry; Emergency Provider Emergency Medicine; Visit Provider Psychiatry & Neurology Psychiatry
DX: F33.1 Major depressive disorder, recurrent, moderate (principal); R45.851 Suicidal ideations; F41.1 Generalized anxiety disorder; F10.10 Alcohol abuse, uncomplicated; F15.10 Other stimulant abuse, uncomplicated; F60.89 Other specific personality disorders; Z81.8 Family history of other mental and behavioral disorders
CPT/HCPCS: 12345; 80053; 80306; 80307; 81001; 81025; 85025; 93005; 99284; J7030

== ENCOUNTER 2020-03-15 21:01 | Inpatient (IN) | payer MEDICAID, SELFPAY ==
[2020-03-15 21:03] VITALS: BP 130/98; PULSE 116; RESP 22; TEMP 37; O2SAT 95; BMI 27.4
--- NOTE | 2020-03-15 21:06 | ECG_ITS ---
[facility] Test Date: 2020-03-15 Pat Name: Maddi Crawley Department: Room: 124 Gender: Female Perinatal Tech: : 1990 Requested By: Freda Gilmore Order Number: [id number] Ba MD: Bob Ty M.D. Measurements Intervals [place] Rate: 96 P: 69 SC: 127 QRS: 68 QRSD: 88 T: 12 QT: 362 QTc: 459 Interpretive Statements SINUS RHYTHM NONSPECIFIC T-WAVE ABNORMALITY Compared to ECG 02/10/2020 00:17:17 T-wave abnormality now present Sinus tachycardia no longer present Short SC interval no longer present Electronically Signed On 03-16-2020 19:08:46 CDT by Bob Ty M.D. [id number]
[2020-03-15] MEDS: haloperidol inj 5 mg/mL INJ 1 mL IM (21:13)
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
[2020-03-15 21:33] LABS: Basophils # 0.1 10^3/uL (0.0-0.1); Basophils % 0.4 %; Eosinophils # 0.2 10^3/uL (0.0-0.8); Eosinophils % 1.1 %; Hematocrit 38.4 % (37.0-47.0); Hemoglobin 12.9 g/dL (11.5-15.3); Lymphocytes # 1.7 10^3/uL (0.8-4.8); Lymphocytes % 12.2 %; Mean Corpuscular HGB Conc 33.6 g/dL (30.0-36.0); Mean Corpuscular Hemoglobin 32.1 pg (28.0-34.0); Mean Corpuscular Volume 95.5 fL (81-99); Mean Platelet Volume 10.2 fL (7.4-10.4); Monocytes # 0.8 10^3/uL (0.2-0.9); Monocytes % 5.5 %; Neutrophils # 11.24 10^3/uL (1.8-7.7); Nucleated Red Blood Cells % 0 %; Platelet Count 346 10^3/cmm (130-400); Red Blood Count 4.02 10^6/uL (4.1-5.3); Red Cell Distribution Width 13.2 % (12.1-15.1); White Blood Count 14.1 10^3/uL (4.0-10.0)
[2020-03-15 21:37] LABS: HCG, Serum Qual Negative (Negative)
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
[2020-03-15 21:56] LABS: Alanine Aminotransferase 13 U/L (0-33); Albumin Level 4.8 g/dL (3.5-5.2); Alcohol Level 89 mg/dL (0-10); Alkaline Phosphatase 91 IU/L (35-105); Anion Gap 17.6 (5-19); Aspartate Amino Transferase 25 U/L (0-32); Blood Urea Nitrogen 9 mg/dL (6-20); Calcium 9.1 mg/dL (8.5-10.5); Carbon Dioxide 22 mmol/L (22-29); Chloride 104 mmol/L (98-107); Glomerular Filtration Rate 75.1 mL/min (90-130); Glucose 94 mg/dL (65-115); Osmolality Calculated 288 mOsm/kg (285-295); Potassium 3.6 mmol/L (3.5-5.1); Sodium 140 mmol/L (136-145); Thyroid Stimulating Hormone 1.37 uIU/mL (0.27-4.20); Total Bilirubin 0.5 mg/dL (0.15-1.2); Total Protein 7.8 g/dL (6.6-8.7)
[2020-03-15 22:04] LABS: Lithium 0.1 mmol/L (0.6-1.2); Phenytoin Dilantin 0.8 ug/mL (10-20); Valproic Acid Level 2.8 ug/mL (50-100)
[2020-03-15 22:08] VITALS: RESP 16
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
[2020-03-15 22:20] LABS: Acetaminophen < 5.0 ug/mL (10-30); Salicylate < 0.3 mg/dL (3-10)
[2020-03-15 22:47] VITALS: BP 103/68; PULSE 108; RESP 12; O2SAT 97
[2020-03-15 22:57] LABS: Amphetamines Screen Urine Positive (Negative); Barbiturates Screen Urine Negative (Negative); Benzodiazepines Screen Urine Negative (Negative); Cocaine Screen Urine Negative (Negative); Opiate Screen Urine Positive (Negative); PCP Screen Urine Negative (Negative); THC Screen Urine Positive (Negative)
[2020-03-15 23:07] VITALS: BP 117/79; PULSE 99; RESP 17; TEMP 36.8; O2SAT 96
[2020-03-16 06:00] VITALS: BP 105/67; PULSE 57; RESP 18; TEMP 36.8; O2SAT 99
[2020-03-16] MEDS: escitalopram 10 mg Tablet 20 MG PO ×2 (07:48→16:47)
[2020-03-16] MEDS: ziprasidone hcl 40 mg Capsule PO ×2 (07:48→16:46)
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
[2020-03-16 13:06] VITALS: BP 99/61; PULSE 84; RESP 18; TEMP 36.8; O2SAT 98
--- NOTE | 2020-03-16 18:15 | PC.RESP ---
Smoking Cessation information sent to patient.
[2020-03-16] MEDS: trazodone 50 mg Tablet PO (20:18)
[2020-03-16] MEDS: OLANZapine 5 mg ODT PO (20:18)
[2020-03-16 21:52] VITALS: BP 108/61; PULSE 68; RESP 17; TEMP 36.4; O2SAT 97
[2020-03-17 06:00] VITALS: BP 116/75; PULSE 87; RESP 17; TEMP 36.7; O2SAT 95
[2020-03-17] MEDS: escitalopram 10 mg Tablet 20 MG PO ×2 (07:46→16:46)
[2020-03-17] MEDS: ziprasidone hcl 40 mg Capsule PO ×2 (07:46→16:46)
[2020-03-17 13:10] VITALS: BP 95/59; PULSE 90; RESP 16; TEMP 37.1; O2SAT 92
--- NOTE | 2020-03-17 13:52 | PM.NPN ---
Subjective NPU Subjective: Interval history: gabriel presented to the appointment reporting that she does feel little better and she starting to adjust the medication. She is now working with the social work team to figure out what she can do after discharge. We discussed the pattern that she has developed that has been showcase in the last 2 admissions. We talked about the importance of her maintaining her medication, going to her follow-up appointments and utilizing her community resources. She reports she is eating better and getting her restorative sleep that have been neglected during her drug use. Medications: Reviewed: Yes Mental Status Exam MSE Comments: This is an overweight, white female, with limited dress, grooming, and eye contact. No abnormal movements, except for psychomotor retardation. Cooperative with exam in mild distress. Speech was normal rate, decreased volume, and childlike. Mood described as a little better; affect congruent. Thought process, organized. Thought content: patient denied any suicidal or homicidal ideation, there were no delusions reported or noted, patient denied any auditory or visual hallucinations. Attention, concentration, and memory appear intact but none were formally tested. She is alert and oriented times three. Insight and judgment are limited. Impulse control is impaired. Vitals/I&O/Wt Last Vital Signs Temp 98.8 F 03/17/20 20:58 Pulse 100 03/17/20 20:58 Resp 19 H 03/17/20 20:58 BP 99/67 03/17/20 20:58 Pulse Ox 95 03/17/20 20:58 Data NPU : 03/15/20 21:20 03/15/20 21:20 A&P Additional A&P Information (1) Suicidal ideation: (2) Cluster B personality disorder: (3) Polysubstance abuse: (4) Methamphetamine use disorder, mild, abuse: (5) Alcohol use disorder, mild, abuse: (6) Generalized anxiety disorder: (7) Major depressive disorder: This is a 29 year old, white female, with major depressive disorder, generalized anxiety disorder, alcohol use disorder, methamphetamine use disorder, and question of cluster B traits, who presents off of medication and endorsing lethality with active addiction. Continue current medication. Encourage individual, group, and milieu therapy. Continue q-15 minute checks for safety. Recommend sober living treatment at the highest level of care to which the patient is willing to commit. Involuntary Hold Information 96 Hour Hold: 96 Hour Involuntary Admission: Yes 96 Hour Hold Ending Date: 03/19/20 96 Hour Hold Ending Time: 21:00 Attestations NPU Medical Necessity Statement*: Inpatient hospitalization is medically necessary and the clinically appropriate intervention, at this time. We will monitor medications and make changes as indicated. Likely length of stay is 3-5 days. Coding Level of Care Code Acute Gill Box Fixer for Gita Jorge
[2020-03-17] MEDS: hyDROXYzine 25 mg Capsule 50 MG PO (20:23)
[2020-03-17] MEDS: trazodone 50 mg Tablet PO (20:24)
[2020-03-17 20:58] VITALS: BP 99/67; PULSE 100; RESP 19; TEMP 37.1; O2SAT 95
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
[2020-03-18 06:00] VITALS: BP 103/70; PULSE 88; RESP 16; TEMP 36.8; O2SAT 97
[2020-03-18] MEDS: escitalopram 10 mg Tablet 20 MG PO ×2 (09:23→17:20)
[2020-03-18] MEDS: ziprasidone hcl 40 mg Capsule PO (09:23)
--- NOTE | 2020-03-18 10:29 | P.PN_ITS ---
Subjective NPU Subjective: Interval history: Maddi presents today continuing to report that she feels like she is struggling and feeling like she is ?losing her mind.? She reports that her kids mean a lot to her and she is not sure how she got in this situation. She reports that the medication is doing okay, and was doing okay before this happened, but she stopped taking it. We discussed the risks, benefits, and alternatives of increasing the medication, and she understood and agreed to proceed as is documented in this note. She reports that she is eating okay. She continues to sleep a lot and is isolative. We discussed the fact that her 96-hour hold is up tomorrow. Mental Status Exam MSE Comments: This is an overweight, white female, with limited dress, grooming, and eye contact. No abnormal movements, except for psychomotor retardation. Cooperative with exam in mild distress. Speech was normal rate, decreased volume, and childlike. Mood described as a i feel like im losing my mind; affect anxious. Thought process, organized. Thought content: patient denied any suicidal or homicidal ideation, there were no delusions reported or noted, patient denied any auditory or visual hallucinations. Attention, concentration, and memory appear intact but none were formally tested. She is alert and oriented times three. Insight and judgment are limited. Impulse control is impaired. Vitals/I&O/Wt Last Vital Signs Temp 98.6 F 03/18/20 19:37 Pulse 88 03/18/20 19:37 Resp 13 03/18/20 19:37 BP 108/67 03/18/20 19:37 Pulse Ox 95 03/18/20 19:37 Data NPU : 03/15/20 21:20 03/15/20 21:20 A&P Additional A&P Information (1) Suicidal ideation: (2) Cluster B personality disorder: (3) Polysubstance abuse: (4) Methamphetamine use disorder, mild, abuse: (5) Alcohol use disorder, mild, abuse: (6) Generalized anxiety disorder: (7) Major depressive disorder: This is a 29 year old, white female, with major depressive disorder, generalized anxiety disorder, alcohol use disorder, methamphetamine use disorder, and question of cluster B traits, who presents off of medication and endorsing lethality with active addiction. Continue current medication. We will increase her Geodon to 60 mg p.o. twice daily. Encourage individual, group, and milieu therapy. Continue q-15 minute checks for safety. Recommend sober living treatment at the highest level of care to which the patient is willing to commit. Involuntary Hold Information 96 Hour Hold: 96 Hour Involuntary Admission: Yes 96 Hour Hold Ending Date: 03/19/20 96 Hour Hold Ending Time: 21:00 Attestations NPU Medical Necessity Statement*: Inpatient hospitalization is medically necessary and the clinically appropriate intervention, at this time. We will monitor medications and make changes as indicated. Likely length of stay is 2-4 days. However her 96-hour hold is up tomorrow at this point we will not file for an extension however we would consider allowing her to sign in. Coding Level of Care Code Acute Plant Maintenance Supervisor for Gita Jorge
[2020-03-18 14:00] VITALS: BP 127/84; PULSE 88; RESP 18; TEMP 36.6; O2SAT 96
[2020-03-18] MEDS: ziprasidone hcl 60 mg Capsule PO (17:20)
[2020-03-18] MEDS: OLANZapine 5 mg ODT PO (17:22)
--- NOTE | 2020-03-18 17:22 | PC.NURSE ---
Addendum entered by Sallie Del Cid LPN 03/18/20 18:36: medication effective, no further c/o anxiety. Original Note: PRN ZYPREXA ZYDIS ZYPREXA ZYDIS 5MG PO PER PATIENT C/O AGITATION/ANXIETY. WILL CONTINUE TO MONITOR FOR MEDICATION EFFECTIVENESS.
[2020-03-18 19:37] VITALS: BP 108/67; PULSE 88; RESP 13; TEMP 37; O2SAT 95
[2020-03-18] MEDS: hyDROXYzine 25 mg Capsule 50 MG PO (20:49)
[2020-03-19 06:00] VITALS: BP 116/76; PULSE 75; RESP 13; TEMP 36.7; O2SAT 96
[2020-03-19] MEDS: escitalopram 10 mg Tablet 20 MG PO (09:10)
[2020-03-19] MEDS: ziprasidone hcl 60 mg Capsule PO (09:10)
[2020-03-19] MEDS: OLANZapine 5 mg ODT PO (09:12)
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
[2020-03-19 12:32] VITALS: BP 116/76; PULSE 75; RESP 13; TEMP 36.7; O2SAT 96
== END 2020-03-19 16:08 | disposition home or self-care (01) | DRG 885 ==
LOC: ER 22:01 → NP 22:33
PROVIDERS: Emergency Medicine; Admitting Provider Psychiatry & Neurology Psychiatry; Visit Provider Psychiatry & Neurology Psychiatry
DX: F33.1 Major depressive disorder, recurrent, moderate (principal); R45.851 Suicidal ideations; Z91.14 Patient's other noncompliance with medication regimen; F43.10 Post-traumatic stress disorder, unspecified; Z81.8 Family history of other mental and behavioral disorders; F41.1 Generalized anxiety disorder; F15.10 Other stimulant abuse, uncomplicated; F17.210 Nicotine dependence, cigarettes, uncomplicated; F60.89 Other specific personality disorders; F10.129 Alcohol abuse with intoxication, unspecified
CPT/HCPCS: 12345; 36415; 51701; 80053; 80156; 80164; 80178; 80185; 80306; 80307; 84443; 84703; 85025; 93005; 96372; 99284; J1630

== ENCOUNTER → 2020-07-17 10:41 | Outpatient (BNVA) | payer MEDICAID, SELFPAY | PROVIDERS: Visit Provider Nurse Practitioner Family | DX: R35.0 Frequency of micturition (principal); N91.2 Amenorrhea, unspecified; F33.1 Major depressive disorder, recurrent, moderate; R00.0 Tachycardia, unspecified; F19.10 Other psychoactive substance abuse, uncomplicated; F15.23 Other stimulant dependence with withdrawal | CPT/HCPCS: 80307; 81000; 81025 ==

== ENCOUNTER 2020-12-07 17:59 | Inpatient (IN) | payer MEDICAID, SELFPAY ==
[2020-12-07 18:17] VITALS: BP 137/94; PULSE 132; RESP 18; TEMP 37.6; O2SAT 95; BMI 24.7
--- NOTE | 2020-12-07 18:55 | ECG_ITS ---
[facility] Test Date: 2020-12-07 Pat Name: Maddi Crawley Department: Room: 152 Gender: Female Cardiovascular Disease Specialist: : 1990 Requested By: Baldo Orona Order Number: [id number] Ba MD: Darcie Hudson M.D. Measurements Intervals [place] Rate: 106 P: 65 AL: 114 QRS: 62 QRSD: 86 T: 39 QT: 329 QTc: 437 Interpretive Statements SINUS TACHYCARDIA WITH SHORT AL INTERVAL Compared to ECG 03/15/2020 21:43:40 Short AL interval now present Sinus rhythm no longer present T-wave abnormality no longer present Electronically Signed On 12-07-2020 22:44:02 CDT by Darcie Hudson M.D. [email or web address][id number]
--- NOTE | 2020-12-07 18:56 | W.ED.PSYCH ---
HPI - Psych General: Chief Complaint: Psychiatric Symptoms Stated Complaint: SI Time Seen by Provider: 12/07/20 18:53 History of Present Illness: HPI Narrative: This patient is a 29-year-old female well-known for the facility for history of alcohol abuse methamphetamine abuse and polysubstance abuse. Patient presents to the emergency department for concerns of suicidal and homicidal ideation. Patient is delusional states that she woke up and believe that her ex-boyfriend was taking her daughter and that was a told that she will never see him again in patient has thoughts of grabbing a knife and stabbing and killing him. Patient also admits to drinking some wild turkey today. States she is an alcoholic and has been since the age of 18. Patient states that she feels like she just needs to take a bunch of pills and just go to sleep forever. Patient appears to be somewhat anxious but then also appears to be intoxicated at the same time. Patient is agreeable to stay in the hospital to get treatment she needs. Will do medical evaluation treat as needed MD complaint: suicidal ideation and feels depressed Onset (ago): hour(s) Duration: constant History of same: Yes Relieving factors: none Exacerbating factors: alcohol and drug use Context: recent alcohol abuse and significant life stressor Associated psychiatric symptoms: depression, suicidal ideation, homicidal ideation and delusions Associated symptoms: Reports depression and suicidal ideation Review of Systems General: Reports: 10 or more systems reviewed and unremarkable except in HPI and below Const: Denies: fever(s), chills, body aches or fatigue Eyes: Denies: change in vision or blurry vision ENMT: Denies: throat pain, hoarseness or mouth pain Card: Denies: chest pain, palpitations, irregular heart rhythm, edema, swelling of feet/ankles or lightheadedness Resp: Denies: dyspnea, productive cough, non-productive cough, wheezing or pain on inspiration GI: Denies: abdominal pain, nausea or vomiting : Denies: flank pain, difficulty voiding, dysuria, urinary frequency, urinary urgency or urinary hesitancy Musc: Denies: neck pain, back pain, extremity pain, extremity swelling, joint pain, joint swelling, joint redness, joint warmth or limited range of motion Skin/Breast: Denies: rash, pruritus, erythema or skin tenderness Neuro: Denies: headache(s), numbness in extremities or weakness in extremities Psych: Reports: anxiety, depression and suicidal ideation PFSH ED PFSH: Medical History (Updated 12/07/20 @ 19:13 by Baldo Orona MD) Alcohol use disorder, mild, abuse Generalized anxiety disorder Major depressive disorder Methamphetamine use disorder, mild, abuse Social History Smoking and tobacco status: current every day smoker cigarettes Packs smoked per day: 0.5 Years cigarettes smoked: 11 Quit status (tobacco): not considering quitting Second hand smoke exposure: Yes Alcohol intake: current Female Reproductive History: Date of last menstrual period: 11/30/20 Physical Exam Const: COMMON NORMALS: no acute distress, average body habitus, patient oriented x3, no limitations, healthy appearing, alert and well nourished HENMT: COMMON NORMALS: normocephalic, atraumatic, hearing grossly normal bilaterally, external ears normal, EAC's normal, TM's normal bilaterally, Normal external nose present, Normal nasal mucous membranes and turbinates present, moist oral mucous membranes, oropharynx normal, dentition normal and gingiva normal HEAD & SCALP: normocephalic and atraumatic NOSE: Normal external nose present and Normal nasal mucous membranes and turbinates present EXTERNAL EAR: Yes external ears normal EXTERNAL AUDITORY CANAL: EAC's normal TYMPANIC MEMBRANE: TM's normal bilaterally Neck/C-Spine: COMMON NORMALS: full ROM, no lymphadenopathy, supple, no meningeal signs, no JVD, Thyroid normal and No carotid bruits THYROID: Thyroid normal Chest: COMMONS NORMALS: normal inspection of the chest, normal palpation of entire chest wall, normal inspection of the breasts and normal palpation of the breasts Breast/axilla inspection: Yes normal inspection of the breasts BREAST/AXILLA PALPATION: Yes normal palpation of the breasts Resp: COMMON NORMALS: normal respiratory effort, No retractions, No use of accessory muscles, clear to auscultation bilaterally and percussion normal AUSCULTATION: clear to auscultation bilaterally PERCUSSION: percussion normal Cardio: COMMON NORMALS: no JVD, regular rate, regular rhythm, S1 normal heart sound present, S2 normal heart sound present, No gallops present (Cardio), No clicks present (Cardio), No murmurs present (Cardio), No rub (Cardio) and Peripheral pulses 2+ throughout RATE: regular rate RHYTHM: regular rhythm HEART SOUNDS: S1 normal heart sound present and S2 normal heart sound present PERIPHERAL PULSES: Peripheral pulses 2+ throughout GI: COMMON NORMALS: Normal to inspection, nondistended, normoactive bowel sounds present, Soft to palpation, non-tender, No hepatosplenomegaly present, no masses and no bruits PALPATION: Yes Soft to palpation and Yes No hepatosplenomegaly present : COMMON NORMALS: Yes no CVA tenderness BLADDER/KIDNEY EXAM: Yes no CVA tenderness Back/Pelvis: COMMON NORMALS: no CVA tenderness, thoracic and lumbar spine normal to inspection, no thoracic nor lumbar tenderness, thoraco-lumbar ROM normal and straight leg raise negative bilaterally Extremity: COMMON NORMALS: normal to inspection, full ROM, capillary refill normal, no joint enlargement, no clubbing, cyanosis or edema, no calf tenderness and no pedal edema Neuro: COMMON NORMALS: patient oriented x3 SENSORIUM/ORIENTATION: Yes alert MENINGEAL SIGNS: Yes no meningeal signs Psych: COMMON NORMALS: mental status grossly normal and speech normal SPEECH: Yes normal speech THOUGHT CONTENT: Yes Suicidality present Course Consultations: Consultation #1: I did discuss at length with Dr. Pleitez who is agreeable for admission to the floor request patient be 96-hour hold. Time: 20:04 Vital Signs: Vital signs: Vital Signs Temperature 99.7 F H 12/07/20 18:17 Pulse Rate 132 H 12/07/20 18:17 Respiratory Rate 18 12/07/20 18:17 Blood Pressure 137/94 12/07/20 18:17 Pulse Oximetry 95 12/07/20 18:17 MDM - Psych MDM Narrative: Medical decision making narrative: This patient is a 29-year-old female well-known for the facility for history of alcohol abuse methamphetamine abuse and polysubstance abuse. Patient presents to the emergency department for concerns of suicidal and homicidal ideation. Patient is delusional states that she woke up and believe that her ex-boyfriend was taking her daughter and that was a told that she will never see him again in patient has thoughts of grabbing a knife and stabbing and killing him. Patient also admits to drinking some wild turkey today. States she is an alcoholic and has been since the age of 18. Patient states that she feels like she just needs to take a bunch of pills and just go to sleep forever. Patient appears to be somewhat anxious but then also appears to be intoxicated at the same time. Patient is agreeable to stay in the hospital to get treatment she needs. Patient will be admitted to the floor for Dr. Pleitez. He will see patient write additional orders Lab Data: Labs: Lab Results 12/07/20 12/07/20 12/07/20 Range/Units 18:56 18:56 18:56 WBC (4.0-10.0) 10^3/ uL RBC (4.1-5.3) 10^6/u L Hgb (11.5-15.3) g/dL Hct (37.0-47.0) % MCV (81-99) fL MCH (28.0-34.0) pg MCHC (30.0-36.0) g/dL RDW (12.1-15.1) % Plt Count (130-400) 10^3/c mm MPV (7.4-10.4) fL Neut % (Auto) % Lymph % (Auto) % [place] % (Auto) % Eos % (Auto) % Baso % (Auto) % Neut # (Auto) (1.8-7.7) 10^3/u L Lymph # (Auto) (0.8-4.8) 10^3/u L [place] # (Auto) (0.2-0.9) 10^3/u L Eos # (Auto) (0.0-0.8) 10^3/u L Baso # (Auto) (0.0-0.1) 10^3/u L Nucleated RBC % (a uto) % Nucleated RBCs # /100WBC Sodium (136-145) mmol/L Potassium (3.5-5.1) mmol/L Chloride (98-107) mmol/L Carbon Dioxide (22-29) mmol/L Anion Gap (5-19) BUN (6-20) mg/dL Creatinine (0.5-0.9) mg/dL GFR Calculation (90-130) mL/min Glucose (65-115) mg/dL Calculated Osmolal ity (285-295) mOsm/k g Calcium (8.5-10.5) mg/dL Total Bilirubin (0.15-1.2) mg/dL AST (0-32) U/L ALT (0-33) U/L Alkaline Phosphata se (35-105) IU/L Total Protein (6.6-8.7) g/dL Albumin (3.5-5.2) g/dL Globulin (1.3-4.6) g/dL TSH (0.27-4.20) uIU/ mL HCG, Qual Negative (Negative) Urine Color Yellow (Yellow) Urine Appearance Hazy A (CLEAR) Urine pH 5 (5-7) Ur Specific Gravit y 1.020 (1.005-1.030) Urine Protein Neg (Negative) Urine Glucose (UA) Norm (Normal) Urine Ketones Negative (Negative) Urine Blood Trace H (Negative) Urine Nitrate Negative (Negative) Urine Bilirubin Neg (Negative) Urine Urobilinogen Norm (Negative) mg/dL Ur Leukocyte Carrol ase Negative (Negative) Urine RBC 0-4 H (0-2) /hpf Urine WBC None (0-5) /hpf Ur Squamous Epith Cells 15-25 H (0-5) /hpf Amorphous Sediment Not Reportable Urine Bacteria 1+ H (NONE) /hpf Urine Mucus 4+ /hpf Salicylates (3-10) mg/dL Urine Opiates Scre en Negative (Negative) ng/mL Acetaminophen (10-30) ug/mL Ur Barbiturates Sc reen Negative (Negative) ng/mL Ur Phencyclidine S crn Negative (Negative) ng/mL Ur Amphetamines Sc reen Positive H (Negative) ng/mL U Benzodiazepines Scrn Negative (Negative) ng/mL Urine Cocaine Scre en Negative (Negative) ng/mL U Marijuana (THC) Screen Positive H (Negative) ng/mL Ethyl Alcohol (0-10) mg/dL 12/07/20 12/07/20 Range/Units 19:04 19:04 WBC 14.8 H (4.0-10.0) 10^3/ uL RBC 4.31 (4.1-5.3) 10^6/u L Hgb 13.4 (11.5-15.3) g/dL Hct 40.3 (37.0-47.0) % MCV 93.5 (81-99) fL MCH 31.1 (28.0-34.0) pg MCHC 33.3 (30.0-36.0) g/dL RDW 13.2 (12.1-15.1) % Plt Count 340 (130-400) 10^3/c mm MPV 10.3 (7.4-10.4) fL Neut % (Auto) 79.0 % Lymph % (Auto) 12.6 % [place] % (Auto) 7.1 % Eos % (Auto) 0.6 % Baso % (Auto) 0.3 % Neut # (Auto) 11.69 H (1.8-7.7) 10^3/u L Lymph # (Auto) 1.9 (0.8-4.8) 10^3/u L [place] # (Auto) 1.1 H (0.2-0.9) 10^3/u L Eos # (Auto) 0.1 (0.0-0.8) 10^3/u L Baso # (Auto) 0.1 (0.0-0.1) 10^3/u L Nucleated RBC % (a uto) 0 % Nucleated RBCs # 0.0 /100WBC Sodium 138 (136-145) mmol/L Potassium 3.7 (3.5-5.1) mmol/L Chloride 101 (98-107) mmol/L Carbon Dioxide 24 (22-29) mmol/L Anion Gap 16.7 (5-19) BUN 8 (6-20) mg/dL Creatinine 0.6 (0.5-0.9) mg/dL GFR Calculation 119.9 (90-130) mL/min Glucose 104 (65-115) mg/dL Calculated Osmolal ity 285 (285-295) mOsm/k g Calcium 8.7 (8.5-10.5) mg/dL Total Bilirubin 0.5 (0.15-1.2) mg/dL AST 15 (0-32) U/L ALT 15 (0-33) U/L Alkaline Phosphata se 90 (35-105) IU/L Total Protein 7.1 (6.6-8.7) g/dL Albumin 4.5 (3.5-5.2) g/dL Globulin 2.6 (1.3-4.6) g/dL TSH 0.41 (0.27-4.20) uIU/ mL HCG, Qual (Negative) Urine Color (Yellow) Urine Appearance (CLEAR) Urine pH (5-7) Ur Specific Gravit y (1.005-1.030) Urine Protein (Negative) Urine Glucose (UA) (Normal) Urine Ketones (Negative) Urine Blood (Negative) Urine Nitrate (Negative) Urine Bilirubin (Negative) Urine Urobilinogen (Negative) mg/dL Ur Leukocyte Carrol ase (Negative) Urine RBC (0-2) /hpf Urine WBC (0-5) /hpf Ur Squamous Epith Cells (0-5) /hpf Amorphous Sediment Urine Bacteria (NONE) /hpf Urine Mucus /hpf Salicylates < 0.3 L (3-10) mg/dL Urine Opiates Scre en (Negative) ng/mL Acetaminophen < 5.0 L (10-30) ug/mL Ur Barbiturates Sc reen (Negative) ng/mL Ur Phencyclidine S crn (Negative) ng/mL Ur Amphetamines Sc reen (Negative) ng/mL U Benzodiazepines Scrn (Negative) ng/mL Urine Cocaine Scre en (Negative) ng/mL U Marijuana (THC) Screen (Negative) ng/mL Ethyl Alcohol 66 H (0-10) mg/dL EKG Data^: EKG 1: Attestation: I personally reviewed and interpreted this EKG as follows: EKG interpretation date: 12/07/20 EKG interpretation time: 19:13 Prior EKG tracings: available for review Interpretation: Sinus tachycardia with a short IA interval heart rate 106 otherwise normal EKG Discharge Plan Discharge Patient Disposition: Admitted As Inpatient Clinical Impression: Suicidal ideations, Cluster B personality disorder, Alcohol use disorder, mild, abuse, Polysubstance abuse Condition: Stable Prescriptions: No Action No Known Home Medications RF: 0 Coding Level of Care Code ED Global Program Director for [facility] Fwd Exam Comprehensive
[2020-12-07 19:10] LABS: Basophils # 0.1 10^3/uL (0.0-0.1); Basophils % 0.3 %; Eosinophils # 0.1 10^3/uL (0.0-0.8); Eosinophils % 0.6 %; Hematocrit 40.3 % (37.0-47.0); Hemoglobin 13.4 g/dL (11.5-15.3); Lymphocytes # 1.9 10^3/uL (0.8-4.8); Lymphocytes % 12.6 %; Mean Corpuscular HGB Conc 33.3 g/dL (30.0-36.0); Mean Corpuscular Hemoglobin 31.1 pg (28.0-34.0); Mean Corpuscular Volume 93.5 fL (81-99); Mean Platelet Volume 10.3 fL (7.4-10.4); Monocytes # 1.1 10^3/uL (0.2-0.9); Monocytes % 7.1 %; Neutrophils # 11.69 10^3/uL (1.8-7.7); Nucleated Red Blood Cells % 0 %; Platelet Count 340 10^3/cmm (130-400); Red Blood Count 4.31 10^6/uL (4.1-5.3); Red Cell Distribution Width 13.2 % (12.1-15.1); White Blood Count 14.8 10^3/uL (4.0-10.0)
[2020-12-07 19:14] LABS: HCG Qualitative Urine. Negative (Negative)
[2020-12-07 19:15] LABS: Add Urine Microscopic? YES; Bilirubin Urine Neg (Negative); Blood Urine Trace (Negative); Glucose Urine UA Norm (Normal); Ketones Urine Negative (Negative); Leukocyte Esterase Urine Negative (Negative); Nitrate Urine Negative (Negative); Protein Urine Neg (Negative); Urine Appearance Hazy (CLEAR); Urine Color Yellow (Yellow); Urobilinogen Urine Norm (Negative); pH Urine 5 (5-7)
[2020-12-07 19:19] LABS: Amphetamines Screen Urine Positive (Negative); Barbiturates Screen Urine Negative (Negative); Benzodiazepines Screen Urine Negative (Negative); Cocaine Screen Urine Negative (Negative); Opiate Screen Urine Negative (Negative); PCP Screen Urine Negative (Negative); THC Screen Urine Positive (Negative)
[2020-12-07 19:25] LABS: Add Urine Culture? No; Bacteria Urine 1+ /hpf; Mucus Urine 4+ /hpf; RBC Urine 0-4 /hpf (0-2); Squamous Epithelial Cell Urine 15-25 /hpf (0-5)
[2020-12-07 19:37] LABS: Alanine Aminotransferase 15 U/L (0-33); Albumin Level 4.5 g/dL (3.5-5.2); Alcohol Level 66 mg/dL (0-10); Alkaline Phosphatase 90 IU/L (35-105); Anion Gap 16.7 (5-19); Aspartate Amino Transferase 15 U/L (0-32); Blood Urea Nitrogen 8 mg/dL (6-20); Calcium 8.7 mg/dL (8.5-10.5); Carbon Dioxide 24 mmol/L (22-29); Chloride 101 mmol/L (98-107); Creatinine Clr Calc Pharmacy 121.2943; Globulin 2.6 g/dL (1.3-4.6); Glomerular Filtration Rate 119.9 mL/min (90-130); Glucose 104 mg/dL (65-115); Osmolality Calculated 285 mOsm/kg (285-295); Potassium 3.7 mmol/L (3.5-5.1); Sodium 138 mmol/L (136-145); Thyroid Stimulating Hormone 0.41 uIU/mL (0.27-4.20); Total Bilirubin 0.5 mg/dL (0.15-1.2); Total Protein 7.1 g/dL (6.6-8.7)
[2020-12-07 19:41] LABS: Acetaminophen < 5.0 ug/mL (10-30); Salicylate < 0.3 mg/dL (3-10)
[2020-12-07 22:00] VITALS: BP 125/87; PULSE 99; RESP 18; TEMP 36.7; O2SAT 99
[2020-12-07] MEDS: trazodone 50 mg Tablet PO (22:45)
[2020-12-07] MEDS: hyDROXYzine 25 mg Capsule 50 MG PO (22:45)
[2020-12-07] MEDS: nicotine 2 mg Gum BUCCAL (22:46)
[2020-12-08 05:43] VITALS: BP 97/65; PULSE 86; RESP 14; TEMP 36.8; O2SAT 97
--- NOTE | 2020-12-08 11:50 | P.HP_ITS ---
Providers/Chief Complaint Admitting Physician: Isaac Pleitez DO Chief Complaint: SI HPI NPU History of Present Illness Maddi Crawley is a 29 year old female with past psychiatric history of major depressive disorder, generalized anxiety disorder, alcohol abuse, polysubstance abuse presented to the emergency department with suicidal ideation in the context of alcohol intoxication and methamphetamine use with bizarre behavior and delusional statements. Patient was last hospitalized in this unit February 2020 and denies any interval psychiatric hospitalizations but also denies any mental health follow- up. She reports that she stopped her medication around April 2020. Patient reports multiple ongoing life stressors which have exacerbated her symptoms and also provoked her recent binging of substances and alcohol leading to her presentation. Patient states that she also experiences low mood states for several days when she is not using any alcohol or substances. Patient states that she was having suicidal thoughts and had taken a bunch of pills last weekend with the intent of wanting to end her life. She currently denies any suicidal ideation or thoughts about self-harm. Patient denies any recent or past hypomanic or manic episodes. She denies any current auditory or visual loose Nations although she does report having some sort of mumbling noise in the background at all times even when she is not using substances or alcohol. She denies any visual hallucinations and denies any delusions. Psychiatric review of systems is otherwise negative Review of Systems General: Reports: 10 or more systems reviewed and unremarkable except in HPI and below Meds NPU Home Medications Medication Instructions Recorded Confirmed Last Taken Type No Known Home Medications 12/07/20 12/07/20 Unknown History Allergies Allergy/AdvReac Type Severity Reaction Status Date / Time No Known Allergies Allergy Verified 12/07/20 18:17 PFSH NPU PFSH: Medical History Alcohol use disorder, mild, abuse Generalized anxiety disorder Major depressive disorder Methamphetamine use disorder, mild, abuse Social History Smoking and tobacco status: current every day smoker cigarettes Packs smoked per day: 0.5 Years cigarettes smoked: 11 Quit status (tobacco): not considering quitting Second hand smoke exposure: Yes Alcohol intake: current Other Psychiatric History: Other Psychiatric History: Noncompliant with psychiatric follow-up with 5+ psychiatric admissions with last psychiatric admission on this unit February 2020 Reports past suicide attempts as well as self-harm behavior in her teens and early 20s Mental Status Exam MSE Comments: Appears stated age, disheveled, unkempt, tired appearing, cooperative with interview, good eye contact Psychomotor activity is decreased, no agitation Speech is normal rate and volume, spontaneous, clear articulation, not pressured I feel tired, congruent affect, not labile Alert and oriented to person, place, time, situation Memory and concentration appear to be intact per interview Intellectual functioning appears to be average based on vocabulary, interview Thought process, linear, no flight of ideas, no looseness of associations Thought content, no delusions, no hallucinations, no suicidal or homicidal ideation Insight and judgment appear to be intact Vitals/I&O/Wt Last Vital Signs Temp 98.2 F 12/08/20 05:43 Pulse 86 12/08/20 05:43 Resp 14 12/08/20 05:43 BP 97/65 12/08/20 05:43 Pulse Ox 97 12/08/20 05:43 Weight last 48 hrs Weight 61.235 kg Data NPU : 12/07/20 19:04 12/07/20 19:04 A&P Assessment and plan (1) Suicidal ideations: Status: Acute (2) Cluster B personality disorder: Status: Acute (3) Polysubstance abuse: Status: Acute (4) Methamphetamine use disorder, mild, abuse: Status: Acute (5) Alcohol use disorder, mild, abuse: Status: Acute (6) Generalized anxiety disorder: Status: Acute (7) Major depressive disorder: Status: Acute Qualifiers: Major depression recurrence: recurrent Active/Remission status: currently active Major depression episode severity: moderate Qualified Code(s): F33.1 - Major depressive disorder, recurrent, moderate Additional A&P Information Patient with reported longstanding history of depression with cluster B personality traits with ongoing issues with polysubstance abuse, alcohol presenting while intoxicated and methamphetamine use with suicidal and delusional statements with bizarre behavior off of medication for greater than 6 months. INVOLUNTARY ADMIT to inpatient psychiatry START Lexapro 10 mg daily targeting mood symptoms Encouraged patient to participate in unit activities to include group sessions, unit milieu Coordinate with public health social worker for post discharge substance treatment as well as medication management follow-up and therapy Involuntary Hold Information 96 Hour Hold: 96 Hour Involuntary Admission: Yes 96 Hour Hold Ending Date: 12/11/20 96 Hour Hold Ending Time: 20:06 Attestations NPU Medical Necessity Statement*: Psychiatric hospitalization is indicated for medication stabilization, coordination for safe discharge Anticipate hospital stay to exceed 2 midnights Time Spent in Patient Care: Greater than 35 minutes (>than 50% of time spent in counselling and/or direct pt care on unit) . Coding Level of Care Code Acute Airport Operations Supervisor for [facility] Fwd Diagnoses Suicidal ideations R45.851 Cluster B personality disorder F60.89 Polysubstance abuse F19.10 Methamphetamine use disorder, mild, abuse F15.10 Alcohol use disorder, mild, abuse F10.10 Generalized anxiety disorder F41.1 Major depressive disorder F33.1 Major depression recurrence: recurrent Active/Remission status: currently active Major depression episode severity: moderate
[2020-12-08] MEDS: escitalopram 10 mg Tablet PO (11:56)
[2020-12-08 14:00] VITALS: BP 88/53; PULSE 76; RESP 16; TEMP 36.2; O2SAT 96
[2020-12-08] MEDS: hyDROXYzine 25 mg Capsule 50 MG PO (20:20)
--- NOTE | 2020-12-08 20:20 | PC.NURSE ---
pt requested meds for anxiety due to another pt intruding on her privacy. Vistaril 50mg given po.
[2020-12-08 22:00] VITALS: BP 104/72; PULSE 80; RESP 17; TEMP 36.9; O2SAT 96
--- NOTE | 2020-12-08 22:25 | PC.NURSE ---
pt resting quietly with both eyes closed
[2020-12-09 06:00] VITALS: BP 112/75; PULSE 81; RESP 20; TEMP 36.7; O2SAT 98
[2020-12-09] MEDS: folic acid 1 mg Tablet PO (08:23)
[2020-12-09] MEDS: escitalopram 10 mg Tablet PO (08:23)
[2020-12-09] MEDS: multivitamin therapeutic Tablet 1 TAB PO (08:24)
[2020-12-09] MEDS: thiamine 100 mg Tablet PO (08:24)
--- NOTE | 2020-12-09 08:45 | PC.NURSE ---
pt compliant with morning medication pass, no questions on scheduled medications given. mood is calm
--- NOTE | 2020-12-09 09:04 | P.PN_ITS ---
Subjective NPU Subjective: Interval history: Patient reports some ongoing depressive and anxiety symptoms Denied any perceptual disturbances, no delusions Overnight patient was complaining of withdrawal symptoms and was provided as needed medication and placed on CIWA Patient tolerated medication changes well with no reports of any medication side effects Patient otherwise stated that she slept well after some initial difficulty with falling asleep She reports having a good appetite Per staff report other than a complaining of withdrawal symptoms, no behavioral disturbances Mental Status Exam MSE Comments: Lying in bed, tired appearing, fair eye contact, disheveled, unkempt Psychomotor activity is decreased, no agitation Speech is normal rate and low volume, spontaneous, clear articulation, not pressured I feel depressed and anxious, congruent affect, not labile Alert and oriented to person, place, time, situation Memory and concentration appear to be intact per interview Thought process, linear, no flight of ideas, no looseness of associations Thought content, no delusions, no hallucinations, no suicidal or homicidal ideation Insight and judgment appear to be intact Vitals/I&O/Wt Last Vital Signs Temp 98.0 F 12/09/20 06:00 Pulse 81 12/09/20 06:00 Resp 20 H 12/09/20 06:00 BP 112/75 12/09/20 06:00 Pulse Ox 98 12/09/20 06:00 Weight last 48 hrs Weight 61.235 kg Data NPU : 12/07/20 19:04 12/07/20 19:04 A&P Assessment and plan (1) Suicidal ideations: Status: Acute (2) Major depressive disorder: Status: Acute Qualifiers: Major depression recurrence: recurrent Active/Remission status: currently active Major depression episode severity: moderate Qualified Code(s): F33.1 - Major depressive disorder, recurrent, moderate (3) Generalized anxiety disorder: Status: Acute (4) Cluster B personality disorder: Status: Acute (5) Polysubstance abuse: Status: Acute (6) Methamphetamine use disorder, mild, abuse: Status: Acute (7) Alcohol use disorder, mild, abuse: Status: Acute Additional A&P Information Ongoing depressive and anxiety symptoms REPEAT CBC INCREASE to Lexapro 20 mg daily targeting mood and anxiety symptoms Continue coordination with public health social worker for post discharge substance and mental health treatment Involuntary Hold Information 96 Hour Hold: 96 Hour Involuntary Admission: Yes 96 Hour Hold Ending Date: 12/11/20 96 Hour Hold Ending Time: 20:06 Attestations NPU Medical Necessity Statement*: Continues to require psychiatric hospitalization for medication stabilization, coordination for safe discharge Coding Level of Care Code Acute Loan Servicing Specialist for [facility] Fwd Diagnoses Suicidal ideations R45.851 Major depressive disorder F33.1 Major depression recurrence: recurrent Active/Remission status: currently active Major depression episode severity: moderate Generalized anxiety disorder F41.1 Cluster B personality disorder F60.89 Polysubstance abuse F19.10 Methamphetamine use disorder, mild, abuse F15.10 Alcohol use disorder, mild, abuse F10.10
[2020-12-09 14:00] VITALS: BP 101/68; PULSE 92; RESP 16; TEMP 36.5; O2SAT 99
[2020-12-09] MEDS: nicotine 2 mg Gum BUCCAL (19:20)
--- NOTE | 2020-12-09 20:00 | PC.NURSE ---
[facility] Pt reports seeing a little boy peeking into her room, running down the hallway, stated, I Know he was not here but he sure looked real.
[2020-12-09 21:14] VITALS: BP 112/78; PULSE 83; RESP 16; TEMP 36.1; O2SAT 95
[2020-12-10] MEDS: hyDROXYzine 25 mg Capsule 50 MG PO (04:54)
[2020-12-10 06:00] VITALS: BP 105/72; PULSE 91; RESP 15; TEMP 37.1; O2SAT 96
--- NOTE | 2020-12-10 08:52 | PC.NURSE ---
Patient note Patient was resting upon entry. Denies any needs. Denies SI, HI and hallucinations.
[2020-12-10] MEDS: thiamine 100 mg Tablet PO (09:58)
[2020-12-10] MEDS: folic acid 1 mg Tablet PO (09:58)
[2020-12-10] MEDS: multivitamin therapeutic Tablet 1 TAB PO (09:58)
[2020-12-10] MEDS: escitalopram 10 mg Tablet 20 MG PO (09:58)
[2020-12-10 14:00] VITALS: BP 92/60; PULSE 82; RESP 18; TEMP 36.3; O2SAT 99
--- NOTE | 2020-12-10 15:29 | PC.RESP ---
Smoking Cessation information sent to patient.
--- NOTE | 2020-12-10 18:00 | P.DS_ITS ---
Diagnoses at Discharge Discharge Diagnosis (1) Suicidal ideations: Status: Acute (2) Major depressive disorder: Status: Acute Qualifiers: Active/Remission status: currently active Major depression episode severity: moderate Major depression recurrence: recurrent Qualified Code(s): F33.1 - Major depressive disorder, recurrent, moderate (3) Generalized anxiety disorder: Status: Acute (4) Cluster B personality disorder: Status: Acute (5) Polysubstance abuse: Status: Acute (6) Methamphetamine use disorder, mild, abuse: Status: Acute (7) Alcohol use disorder, mild, abuse: Status: Acute Reason for Visit Reason for Visit: SI Brief History: History of Present Illness Maddi Crawley is a 29 year old female with past psychiatric history of major depressive disorder, generalized anxiety disorder, alcohol abuse, polysubstance abuse presented to the emergency department with suicidal ideation in the context of alcohol intoxication and methamphetamine use with bizarre behavior and delusional statements. Patient was last hospitalized in this unit February 2020 and denies any interval psychiatric hospitalizations but also denies any mental health follow- up. She reports that she stopped her medication around April 2020. Patient reports multiple ongoing life stressors which have exacerbated her symptoms and also provoked her recent binging of substances and alcohol leading to her presentation. Patient states that she also experiences low mood states for several days when she is not using any alcohol or substances. Patient states that she was having suicidal thoughts and had taken a bunch of pills last weekend with the intent of wanting to end her life. She currently denies any suicidal ideation or thoughts about self-harm. Patient denies any recent or past hypomanic or manic episodes. She denies any current auditory or visual loose Nations although she does report having some sort of mumbling noise in the background at all times even when she is not using substances or alcohol. She denies any visual hallucinations and denies any delusions. Psychiatric review of systems is otherwise negative Hospital Course Hospital Course She presented to the emergency department with the following report: Chief Complaint: Psychiatric Symptoms Stated Complaint: SI Time Seen by Provider: 12/07/20 18:53 History of Present Illness: HPI Narrative: This patient is a 29-year-old female well-known for the facility for history of alcohol abuse methamphetamine abuse and polysubstance abuse. Patient presents to the emergency department for concerns of suicidal and homicidal ideation. Patient is delusional states that she woke up and believe that her ex-boyfriend was taking her daughter and that was a told that she will never see him again in patient has thoughts of grabbing a knife and stabbing and killing him. Patient also admits to drinking some wild turkey today. States she is an alcoholic and has been since the age of 18. Patient states that she feels like she just needs to take a bunch of pills and just go to sleep forever. Patient appears to be somewhat anxious but then also appears to be intoxicated at the same time. Patient is agreeable to stay in the hospital to get treatment she needs. Will do medical evaluation treat as needed MD complaint: suicidal ideation and feels depressed Onset (ago): hour(s) Duration: constant History of same: Yes Relieving factors: none Exacerbating factors: alcohol and drug use Context: recent alcohol abuse and significant life stressor Associated psychiatric symptoms: depression, suicidal ideation, homicidal ideation and delusions Associated symptoms: Reports depression and suicidal ideation. She is admitted to the neuropsychiatric unit for definitive treatment of those issues. On the unit she quickly acclimated to the individual, group milieu therapies provided. She was started on Lexapro which was titrated to 20 mg p.o. every morning with marked improvement. She was able to identify that her active addiction is making her mental health hard to manage. She was able contract for safety prior to discharge. During the hospitalization, patient had routine laboratory studies which were within normal limits except for few outliers. Additionally there was a general medical evaluation which was also within normal limits and revealed no new acute processes. Discharge Summary: At the time of discharge, she denied psychosis or lethality. Mood and anxiety were well managed. Patient endorsed a plan to avoid all drugs of abuse and follow-up with the aftercare recommendations of the treatment team. Patient was evaluated and deemed to be absent credible lethality, and had achieved the maximum benefit from an inpatient hospitalization, so was discharged. Involuntary Hold Information 96 Hour Hold: 96 Hour Involuntary Admission: Yes 96 Hour Hold Ending Date: 12/11/20 96 Hour Hold Ending Time: 20:06 Mental Status Exam MSE Comments: This is a well-nourished, well-developed white female with hospital scrubs along with adequate grooming and eye contact. No abnormal movements except for being mildly energetic. Cooperative with exam in no acute distress. Speech was slightly increased rate normal volume. Mood described as pretty good affect congruent. Thoughts organized. Thought content: Patient denied suicidal or homicidal ideation, appeared reliable but none were formally tested. Alert and oriented x3. Insight and judgment appear improving and well- controlled is improving. Discharge Data Vitals: Last Vital Signs Temp 97.4 F L 12/10/20 14:00 Pulse 82 12/10/20 14:00 Resp 18 12/10/20 14:00 BP 92/60 12/10/20 14:00 Pulse Ox 99 12/10/20 14:00 Discharge Plan Discharge Patient Disposition: Home Condition: Stable Prescriptions: New folic acid 1 mg Tablet 1 mg PO DAILY 30 Days Qty: 30 RF: 1 hydroxyzine pamoate 25 mg Capsule 50 mg PO Q6H PRN (Reason: Anxiety) 30 Days Qty: 120 RF: 1 escitalopram oxalate 10 mg Tablet 20 mg PO DAILY 30 Days Qty: 60 RF: 1 Vitamin B-1 (mononitrate) 100 mg Tablet 100 mg PO DAILY 30 Days Qty: 30 RF: 1 Discharge Orders: Discharge Order (Routine); Ordered 12/10/20 Ordered By: Maximino Haynes Referrals: [facility] [Outside] Kenyatta Watson MD [[place]] - 01/08/21 7:45 am Discharge Diet: Regular Discharge Activity: Resume usual activity Patient Instructions: Generalized Anxiety Disorder (DC), Opioid Safety Discharge Attestations NPU Time Spent in Discharge Care*: less than 30 min Specific Discharge Activities: Specific discharge activities: educating patient, discussing with paper cone machine tender/social workers/dc planners, briannen jeannie/other paperwork and evaluating patient/reviewing data Coding Level of Care Code Acute Chg FW DC note Diagnoses Suicidal ideations R45.851 Major depressive disorder F33.1 Active/Remission status: currently active Major depression episode severity: moderate Major depression recurrence: recurrent Generalized anxiety disorder F41.1 Cluster B personality disorder F60.89 Polysubstance abuse F19.10 Methamphetamine use disorder, mild, abuse F15.10 Alcohol use disorder, mild, abuse F10.10
[2020-12-10 18:19] VITALS: BP 92/60; PULSE 82; RESP 18; TEMP 36.3; O2SAT 99
== END 2020-12-10 18:52 | disposition home or self-care (01) | DRG 881 ==
LOC: ER 20:05 → NP 20:40
PROVIDERS: Admitting Provider Psychiatry & Neurology Psychiatry; Emergency Provider Emergency Medicine; Visit Provider Psychiatry & Neurology Psychiatry
DX: F32.9 Major depressive disorder, single episode, unspecified (principal); R45.851 Suicidal ideations; F41.1 Generalized anxiety disorder; F10.229 Alcohol dependence with intoxication, unspecified; F15.10 Other stimulant abuse, uncomplicated; Z91.5 Personal history of self-harm; F60.89 Other specific personality disorders; R45.850 Homicidal ideations
CPT/HCPCS: 80053; 80306; 80307; 81001; 81025; 84443; 85025; 93005; 99285

== ENCOUNTER → 2021-05-03 09:01 | Outpatient (BNVA) | payer OTHER, MEDICAID, SELFPAY | PROVIDERS: Visit Provider Counselor Professional | DX: F41.1 Generalized anxiety disorder (principal); F33.1 Major depressive disorder, recurrent, moderate; R45.851 Suicidal ideations; F60.89 Other specific personality disorders; F33.2 Major depressive disorder, recurrent severe without psychotic features | CPT/HCPCS: 90834 ==

== ENCOUNTER → 2021-05-24 09:32 | Outpatient (BNVA) | payer OTHER, SELFPAY | PROVIDERS: Visit Provider Nurse Practitioner Psychiatric/Mental Health | DX: F43.10 Post-traumatic stress disorder, unspecified (principal); F33.1 Major depressive disorder, recurrent, moderate; F17.210 Nicotine dependence, cigarettes, uncomplicated; F11.20 Opioid dependence, uncomplicated; F15.10 Other stimulant abuse, uncomplicated; F12.20 Cannabis dependence, uncomplicated; F10.20 Alcohol dependence, uncomplicated | CPT/HCPCS: 90792 ==

== ENCOUNTER 2021-07-09 13:59 | Inpatient (IN) | payer MEDICAID, SELFPAY ==
[2021-07-09 14:17] VITALS: BP 127/84; PULSE 157; RESP 16; TEMP 36.8; O2SAT 99
[2021-07-09 15:09] LABS: Amphetamines Screen Urine Positive (Negative); Barbiturates Screen Urine Negative (Negative); Benzodiazepines Screen Urine Negative (Negative); Cocaine Screen Urine Negative (Negative); Opiate Screen Urine Negative (Negative); PCP Screen Urine Negative (Negative); THC Screen Urine Positive (Negative)
[2021-07-09 15:16] LABS: Basophils # 0.1 10^3/uL (0.0-0.1); Basophils % 0.4 %; Eosinophils # 0.1 10^3/uL (0.0-0.8); Eosinophils % 0.8 %; Hematocrit 38.5 % (37.0-47.0); Hemoglobin 12.8 g/dL (11.5-15.3); Lymphocytes # 2.6 10^3/uL (0.8-4.8); Lymphocytes % 23.3 %; Mean Corpuscular HGB Conc 33.2 g/dL (30.0-36.0); Mean Corpuscular Hemoglobin 31.8 pg (28.0-34.0); Mean Corpuscular Volume 95.5 fl (81-99); Mean Platelet Volume 10.1 fL (7.4-10.4); Monocytes # 0.9 10^3/uL (0.2-0.9); Monocytes % 7.6 %; Neutrophils # 7.54 10^3/uL (1.8-7.7); Nucleated Red Blood Cells % 0 %; Platelet Count 369 10^3/cmm (130-400); Red Blood Count 4.03 10^6/uL (4.1-5.3); Red Cell Distribution Width 13.4 % (12.1-15.1); White Blood Count 11.3 10^3/uL (4.0-10.0)
--- NOTE | 2021-07-09 15:23 | ED_ITS ---
HPI - General Adult General: Chief complaint: Alcohol Stated complaint: ALCOHOL DETOX COMPLICATIONS Time Seen by Provider: 07/09/21 14:25 History of Present Illness: HPI narrative: HPI: [30]yo patient w/ hx of depression and chronic alcohol dependence BIBA for suicidal ideation and wanting to obtain detox. Last drink was this AM.for On arrival, the patient is AAOx3 and cooperative with my evaluation. No focal complaints of chest pain, shortness of breath, palpitations, N/V, focal GI/ complaints. +Reports suicidal thought with plan to overdose with sleeping pills and alcohol. No complaints of hallucinations. Onset: acute Duration: ongoing Location: home Severity: severe Associated symptoms: Deny chest pain, dyspnea, nausea, rash, palpitations or vomiting Review of Systems Const: Denies: fever(s) or chills Eyes: Denies: change in vision ENMT: Denies: mouth pain Card: Denies: chest pain or palpitations Resp: Denies: dyspnea or non-productive cough GI: Denies: abdominal pain, nausea, vomiting or diarrhea : Denies: dysuria Musc: Denies: extremity pain Skin/Breast: Denies: rash or new lesions Neuro: Denies: weakness in extremities Psych: Reports: other (depressed mood, +suicidal ideation) Deandre/Lymph: Denies: easy bruising PFSH ED PFSH: Medical History Alcohol use disorder, severe, dependence Cannabis dependence with current use Severe Generalized anxiety disorder Major depressive disorder Major depressive disorder, recurrent episode, moderate with anxious distress Nicotine dependence, cigarettes, uncomplicated Opiate dependence severe Other stimulant abuse, uncomplicated Methamphetamines Psychiatric care PTSD (post-traumatic stress disorder) Social History Smoking and tobacco status: current every day smoker cigarettes Packs smoked per day: 0.5 Years cigarettes smoked: 11 Quit status (tobacco): not considering quitting Second hand smoke exposure: Yes Alcohol intake: current Female Reproductive History: Date of last menstrual period: 11/30/20 Physical Exam Const: COMMON NORMALS: alert HENMT: COMMON NORMALS: atraumatic HEAD & SCALP: atraumatic MOUTH: moist mucous membranes not abnormal Eye: COMMON NORMALS: EOMs intact bilaterally and conjunctivae normal CONJUNCTIVA: Yes conjunctivae normal Neck/C-Spine: COMMON NORMALS: full ROM and supple Resp: COMMON NORMALS: normal respiratory effort and clear to auscultation bilaterally AUSCULTATION: clear to auscultation bilaterally Cardio: COMMON NORMALS: regular rate RATE: regular rate GI: COMMON NORMALS: Soft to palpation and non-tender PALPATION: Yes Soft to palpation Extremity: COMMON NORMALS: full ROM Neuro: SENSORIUM/ORIENTATION: Yes alert MOTOR EXAM: No Abnormal motor strength present and Other motor observations present (no focal motor deficits) Psych: COMMON NORMALS: speech normal SPEECH: Yes normal speech MOOD & AFFECT: Yes depressed mood Course Vital Signs: Vital signs: Vital Signs Temperature 98.2 F 07/09/21 14:17 Pulse Rate 157 H 07/09/21 14:17 Respiratory Rate 16 07/09/21 14:17 Blood Pressure 127/84 07/09/21 14:17 Pulse Oximetry 99 07/09/21 14:17 MDM - General Adult MDM Narrative: Medical decision making narrative: [30]yo patient w/ hx of depression and alcohol use presenting for alcohol detox and suicidal ideation with a plan. HDS, exam within normal limit Thoughts are linear and organized, and the patient has no AH/VH, or HI. Clinically the patient displays no overt toxidrome; they are well appearing, with low suspicion for toxic ingestion given history and exam. Symptoms unlikely 2/2 anemia, hypothyroidism, infection, or ICH. Workup: CBC, BMP, salicylate/tylenol UDS Lab findings: wnl [4:00pm] On reassessment, labs and workup wnl. Patient is hemodynamically stable with no acute medical complaints. Case discussed with psychiatric provider Dr. Tyler at [facility] psych inpatient with recommendation for admission Disposition: Psych Lab Data: Labs: Lab Results 07/09/21 07/09/21 07/09/21 14:48 14:48 15:10 WBC 11.3 10^3/uL H 10 ^3/uL (4.0-10.0) RBC 4.03 10^6/uL L 10 ^6/uL (4.1-5.3) Hgb 12.8 g/dL g/dL (11.5-15.3) Hct 38.5 % % (37.0-47.0) MCV 95.5 fl fl (81-99) MCH 31.8 pg pg (28.0-34.0) MCHC 33.2 g/dL g/dL (30.0-36.0) RDW 13.4 % % (12.1-15.1) Plt Count 369 10^3/cmm 10^3 /cmm (130-400) MPV 10.1 fL fL (7.4-10.4) Neut % (Auto) 67.0 % % Lymph % (Auto) 23.3 % % [place] % (Auto) 7.6 % % Eos % (Auto) 0.8 % % Baso % (Auto) 0.4 % % Neut # (Auto) 7.54 10^3/uL 10^3 /uL (1.8-7.7) Lymph # (Auto) 2.6 10^3/uL 10^3/ uL (0.8-4.8) [place] # (Auto) 0.9 10^3/uL 10^3/ uL (0.2-0.9) Eos # (Auto) 0.1 10^3/uL 10^3/ uL (0.0-0.8) Baso # (Auto) 0.1 10^3/uL 10^3/ uL (0.0-0.1) Nucleated RBC % (a uto) 0 % % Nucleated RBCs # 0.0 /100WBC /100W BC Urine HCG, Qual Negative (Negative) Urine Opiates Scre en Negative ng/mL ng /mL (Negative) Ur Barbiturates Sc reen Negative ng/mL ng /mL (Negative) Ur Phencyclidine S crn Negative ng/mL ng /mL (Negative) Ur Amphetamines Sc reen Positive ng/mL H ng/mL (Negative) U Benzodiazepines Scrn Negative ng/mL ng /mL (Negative) Urine Cocaine Scre en Negative ng/mL ng /mL (Negative) U Marijuana (THC) Screen Positive ng/mL H ng/mL (Negative) Discharge Plan Discharge Prescriptions: No Action folic acid 1 mg tablet 1 mg PO DAILY 30 Days Qty: 30 RF: 1 Vitamin B-1 (mononitrate) 100 mg tablet 100 mg PO DAILY 30 Days Qty: 30 RF: 1 sertraline [Zoloft] 50 mg tablet 50 mg PO .morning Qty: 30 RF: 1 Coding Level of Care Code ED Building Rental Superintendent for Chg Ania
[2021-07-09 15:42] LABS: Anion Gap 16.5 (5-19); Blood Urea Nitrogen 8 mg/dL (6-20); Calcium 8.3 mg/dL (8.5-10.5); Carbon Dioxide 24 mmol/L (22-29); Chloride 102 mmol/L (98-107); Glucose 78 mg/dL (65-115); Osmolality Calculated 285 mOsm/kg (285-295); Potassium 3.5 mmol/L (3.5-5.1); Sodium 139 mmol/L (136-145)
[2021-07-09] MEDS: PHENobarbital 32.4 mg Tablet 259.2 MG PO (15:43)
[2021-07-09 15:46] LABS: Acetaminophen < 5.0 ug/mL (10-30); Salicylate < 0.3 mg/dL (3-10)
[2021-07-09 16:13] VITALS: BP 136/88; PULSE 127; RESP 22; O2SAT 99
--- NOTE | 2021-07-09 16:14 | PC.NURSE ---
Feeling weak,and sweating . Notified Dr Trevino Offered a wet wash cloth on forehead.
[2021-07-09 16:19] LABS: Glucose Point of Care 90 mg/dL (70-110)
--- NOTE | 2021-07-09 16:21 | PC.NURSE ---
Blood glucose 90
[2021-07-09 16:25] LABS: Alcohol Level < 10 mg/dL (0-10)
--- NOTE | 2021-07-09 16:48 | ECG_ITS ---
[facility] Test Date: 2021-07-09 Pat Name: Maddi Crawley Department: Room: Gender: Female Hvac/R Instructor: : 1990 Requested By: Cari Trevino Order Number: [id number] Mejia MD: SHOAIB LEAL Measurements Intervals [place] Rate: 153 P: 72 [place]: 119 QRS: 56 QRSD: 78 T: 43 QT: 262 QTc: 418 Interpretive Statements SINUS TACHYCARDIA WITH SHORT OH INTERVAL, POSSIBLE ATRIAL FLUTTER NONSPECIFIC ST & T-WAVE ABNORMALITY CRITICAL TEST RESULT Compared to ECG 12/07/2020 19:13:50 T-wave abnormality now present Electronically Signed On 07-09-2021 18:14:36 ELECTROTYPE FINISHER by SHOAIB LEAL [email or web address]
[2021-07-09 17:01] VITALS: BP 113/77; PULSE 111; RESP 12; O2SAT 97
[2021-07-09 17:28] VITALS: BP 113/77; PULSE 107; RESP 23; O2SAT 97
[2021-07-09 18:31] VITALS: BP 119/78; PULSE 104; RESP 20; TEMP 37; O2SAT 97
[2021-07-09] MEDS: hyDROXYzine 25 mg Capsule 50 MG PO (19:29)
[2021-07-09] MEDS: acetaminophen 325 mg Tablet 650 MG PO (19:29)
[2021-07-09] MEDS: ondansetron 4 MG Tablet PO (19:29)
[2021-07-09 20:52] VITALS: BP 119/78; PULSE 104; RESP 20; TEMP 37
[2021-07-09] MEDS: LORazepam 2 mg Tablet PO (22:59)
[2021-07-09] MEDS: ibuprofen 600 mg Tablet PO (22:59)
[2021-07-09] MEDS: trazodone 50 mg Tablet PO (22:59)
--- NOTE | 2021-07-09 23:43 | PC.NURSE ---
Patient is very anxious and has a bad headache. She states that she is also nauseated. Tylenol given for the headache. This was not effective. The vistaril helped about 50% on her anxiety. The zofran was effective.
--- NOTE | 2021-07-09 23:45 | PC.NURSE ---
Ibuprofen given for the headache. Lorazepam given for anxiety with a CIWA score of 14. It was effective. Trazadone for insomnia effective as patient is quietly resting in bed.
[2021-07-10 05:54] VITALS: BP 94/62; PULSE 62; RESP 17; TEMP 36.2; O2SAT 97
--- NOTE | 2021-07-10 08:47 | P.NPUHP_ITS ---
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 current every day smoker cigarettes Packs smoked per day: 0.5 Years cigarettes smoked: 11 Quit status (tobacco): not considering quitting Second hand smoke exposure: Yes Alcohol intake: current Mental Status Exam MSE Comments: This is a 30-year-old appropriate weight female in hospital scrubs who appears her stated age and in no acute distress. psychomotor activity is normal. Speech is at a regular rate and rhythm, normal volume, good articulation, not pressured. Alert, oriented X3 Attention and concentration appeared to be normal. Memory is intact Mood is depressed. Affect is mildly dysphoric. Thought process is logical and goal-directed. Thought content: Denies auditory and visual hallucinations. No delusions or paranoia are noted. No current suicidal ideation, and no homicidal ideation. Fund of knowledge is appears to be average. Insight and judgment appear to be fair. Impulse control is fair. Vitals/I&O/Wt Last Vital Signs Temp 97.2 F L 07/10/21 05:54 Pulse 62 07/10/21 05:54 Resp 17 07/10/21 05:54 BP 94/62 07/10/21 05:54 Pulse Ox 97 07/10/21 05:54 Weight last 48 hrs Weight 61.235 kg Data NPU : 07/09/21 15:10 07/09/21 15:10 A&P Assessment and plan (1) Alcohol use disorder, severe, dependence: Status: Chronic (2) PTSD (post-traumatic stress disorder): Status: Suspected (3) Major depressive disorder, recurrent episode, moderate with anxious distress: Status: Chronic (4) Cannabis dependence with current use: Status: Acute (5) Other stimulant abuse, uncomplicated: Status: Chronic (6) Opiate dependence: Status: Chronic Qualifiers: Substance use status: uncomplicated Qualified Code(s): F11.20 - Opioid dependence, uncomplicated (7) Suicidal ideations: Status: Acute (8) Generalized anxiety disorder: Status: Chronic (9) Borderline personality disorder: Status: Acute Additional A&P Information This is a 30-year-old female with polysubstance abuse and borderline personality disorder who has been trying to get into a rehab facility for the last couple of months and unsuccessful. Plan: 1. Continue current medication. Increase Zoloft to 200 mg in 3 days. Consider getting naltrexone injection. Add risperidone 1 mg at bedtime. 2. Continue every 15 minute checks for safety. 3. Encourage individual, group and milieu therapies. 4. Encourage sober living treatment after discharge at the highest level of care to which she is willing to commit. 5. We will monitor for safety for herself in the community prior to discharge. Involuntary Hold Information 96 Hour Hold: 96 Hour Involuntary Admission: No 96 Hour Hold Ending Date: 12/11/20 96 Hour Hold Ending Time: 20:06 Attestations NPU Medical Necessity Statement*: Inpatient hospitalization is medically necessary and the clinically appropriate intervention at this time. We will initiate medications and make changes as indicated. She will be in the hospital for over 2 midnights. Likely length of stay 4-6 days Coding Level of Care Code Acute Senior Research Engineer for [employer] Diagnoses Alcohol use disorder, severe, dependence F10.20 PTSD (post-traumatic stress disorder) F43.10 Major depressive disorder, recurrent episode, moderate with anxious distress F33.1 Cannabis dependence with current use F12.20 Other stimulant abuse, uncomplicated F15.10 Opiate dependence F11.20 Substance use status: uncomplicated Suicidal ideations R45.851 Generalized anxiety disorder F41.1 Borderline personality disorder F60.3
[2021-07-10] MEDS: thiamine 100 mg Tablet PO (09:24)
[2021-07-10] MEDS: sertraline 100 mg Tablet PO (09:24)
[2021-07-10] MEDS: multivitamin therapeutic Tablet 1 TAB PO (09:24)
[2021-07-10] MEDS: naltrexone hcl 50 mg Tablet PO (09:24)
[2021-07-10] MEDS: folic acid 1 mg Tablet PO (09:24)
[2021-07-10] MEDS: acetaminophen 325 mg Tablet 650 MG PO ×2 (09:24→12:34)
[2021-07-10] MEDS: hyDROXYzine 25 mg Capsule 50 MG PO (12:09)
[2021-07-10] MEDS: OLANZapine 5 mg ODT PO (12:09)
[2021-07-10 14:00] VITALS: BP 95/59; PULSE 64; RESP 18; TEMP 36.8; O2SAT 97
[2021-07-10 20:32] VITALS: BP 111/71; PULSE 83; RESP 18; TEMP 36.8; O2SAT 97
[2021-07-10] MEDS: risperiDONE 1 mg Tablet PO (21:40)
[2021-07-11 06:00] VITALS: BP 111/71; PULSE 83; RESP 18; TEMP 36.8; O2SAT 97; BMI 24.7
[2021-07-11 07:41] VITALS: BP 110/76; PULSE 100; RESP 20; O2SAT 97
[2021-07-11] MEDS: thiamine 100 mg Tablet PO (08:55)
[2021-07-11] MEDS: multivitamin therapeutic Tablet 1 TAB PO (08:55)
[2021-07-11] MEDS: sertraline 100 mg Tablet PO (08:55)
[2021-07-11] MEDS: folic acid 1 mg Tablet PO (08:55)
[2021-07-11] MEDS: naltrexone hcl 50 mg Tablet PO (08:56)
--- NOTE | 2021-07-11 09:42 | W.PM.NPUPNS ---
Subjective NPU Subjective: Interval history: She is feeling better. She says that she is sleeping well. She thought she took something to help her sleep last night but it is not recorded that she took anything besides the risperidone 1 mg. She would like to take trazodone 50 mg every night. She is still hoping that she can go to a rehab facility as soon as we can find a bed for her at one. She said her mood is improved. She has not had any suicidal thoughts. Mental Status Exam MSE Comments: This is a 30-year-old appropriate weight female in hospital scrubs who appears her stated age and in no acute distress. psychomotor activity is normal. Speech is at a regular rate and rhythm, normal volume, good articulation, not pressured. Alert, oriented X3 Attention and concentration appeared to be normal. Memory is intact Mood is depressed but better. Affect is euthymic. Thought process is logical and goal-directed. Thought content: Denies auditory and visual hallucinations. No delusions or paranoia are noted. No current suicidal ideation, and no homicidal ideation. Fund of knowledge is appears to be average. Insight and judgment appear to be fair. Impulse control is fair. Cognition: Patient Appearance: Disheveled/Poor Hygiene Level of Consciousness: Awake, Alert, Appropriate and Follows Commands Patient Cognition Impaired: Yes (ETOH) Ability to Follow Directions: Excellent Patient Orientation (long list): Person, Place, Time, Name, Age and Birthday Comprehension Ability: No Impairment Hallucination Type: None Delusion Description: Not Present Thought Process: Indecisive Affect: Affect Description: Appropriate and Calm Depressive Symptoms: Difficulty Making Decisions, Feelings of Guilt, Feelings of Worthlessness, Hopelessness, Increased Anxiety, Isolating Oneself From Friends and Family, Loss of Energy, Loss of Interest in Activities, Low Self Esteem, Muscle Pain, Significant Weight Gain, Recurrent Thoughts of or Suicide, Unexplained Headaches and Unhappiness Behavior: Patient Behavior: Appropriate and Cooperative Speech Pattern: Appropriate and Clear Vitals/I&O/Wt Last Vital Signs Temp 98.3 F 07/11/21 06:00 Pulse 100 07/11/21 07:41 Resp 20 H 07/11/21 07:41 BP 110/76 07/11/21 07:41 Pulse Ox 97 07/11/21 07:41 Weight last 48 hrs Weight 61.235 kg Weight 61.235 kg Data NPU : 07/09/21 15:10 07/09/21 15:10 A&P Assessment and plan (1) Alcohol use disorder, severe, dependence: Status: Chronic (2) PTSD (post-traumatic stress disorder): Status: Suspected (3) Major depressive disorder, recurrent episode, moderate with anxious distress: Status: Chronic (4) Cannabis dependence with current use: Status: Acute (5) Other stimulant abuse, uncomplicated: Status: Chronic (6) Opiate dependence: Status: Chronic Qualifiers: Substance use status: uncomplicated Qualified Code(s): F11.20 - Opioid dependence, uncomplicated (7) Suicidal ideations: Status: Acute (8) Generalized anxiety disorder: Status: Chronic (9) Borderline personality disorder: Status: Acute Additional A&P Information This is a 30-year-old female with polysubstance abuse and borderline personality disorder who has been trying to get into a rehab facility for the last couple of months and unsuccessful. Plan: 1. Continue current medication. Increase Zoloft to 200 mg in 2 days. Consider getting naltrexone injection. risperidone 1 mg at bedtime. Add trazodone 50 mg at bedtime. 2. Continue every 15 minute checks for safety. 3. Encourage individual, group and milieu therapies. 4. Encourage sober living treatment after discharge at the highest level of care to which she is willing to commit. 5. We will monitor for safety for herself in the community prior to discharge. Involuntary Hold Information 96 Hour Hold: 96 Hour Involuntary Admission: No 96 Hour Hold Ending Date: 12/11/20 96 Hour Hold Ending Time: 20:06 Attestations NPU Medical Necessity Statement*: Inpatient hospitalization is medically necessary and the clinically appropriate intervention at this time. We will initiate medications and make changes as indicated. 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
[2021-07-11] MEDS: hyDROXYzine 25 mg Capsule 50 MG PO ×2 (09:58→20:18)
--- NOTE | 2021-07-11 10:15 | PC.NURSE ---
Addendum entered by Cristiano Sams RN 07/11/21 10:57: PT IN BED RESTING O S/S OF DISTRESS, WILL CONTINUE TO MONITOR. Original Note: PRN MED PT GIVEN 50MG VISTARIL FOR STATED ANXIETY, WILL CONTINUE TO MONITOR.
[2021-07-11 13:59] VITALS: BP 110/76; PULSE 100; RESP 20; TEMP 36.8; O2SAT 97
[2021-07-11] MEDS: ondansetron 4 MG Tablet PO (16:57)
--- NOTE | 2021-07-11 17:03 | PC.NURSE ---
Addendum entered by Cristiano Sams RN 07/11/21 19:03: PT IN BED RESTING O S/S OF DISTRESS, WILL CONTINUE TO MONITOR. Original Note: PRN MED PT GIVEN 4MG ZOPHRAN FOR NAUSEA, WILL CONTINUE TO MONITOR
[2021-07-11] MEDS: risperiDONE 1 mg Tablet PO (20:04)
[2021-07-11] MEDS: trazodone 50 mg Tablet PO (20:19)
[2021-07-11 21:07] VITALS: BP 106/72; PULSE 104; RESP 16; TEMP 36.7; O2SAT 98
[2021-07-12 06:00] VITALS: BP 106/72; PULSE 104; RESP 16; TEMP 36.7; O2SAT 98
[2021-07-12 06:30] VITALS: BP 112/74; PULSE 86; RESP 18; O2SAT 98
[2021-07-12] MEDS: sertraline 100 mg Tablet PO (08:25)
[2021-07-12] MEDS: naltrexone hcl 50 mg Tablet PO (08:25)
[2021-07-12] MEDS: folic acid 1 mg Tablet PO (08:25)
[2021-07-12] MEDS: thiamine 100 mg Tablet PO (08:25)
[2021-07-12] MEDS: multivitamin therapeutic Tablet 1 TAB PO (08:26)
[2021-07-12] MEDS: nicotine 2 mg Gum BUCCAL (09:39)
[2021-07-12] MEDS: hyDROXYzine 25 mg Capsule 50 MG PO (11:03)
--- NOTE | 2021-07-12 11:06 | PC.NURSE ---
pt has been resting in bed all day, came up to nurses station requesting something for anxiety, states she feels like she is going to have a panic attack, pat given 50mg of vistaril pt is in bed with eyes closed trying to rest after taking med
[2021-07-12] MEDS: OLANZapine 5 mg ODT PO (12:16)
--- NOTE | 2021-07-12 12:51 | P.NPUPN_ITS ---
Subjective NPU Subjective: Interval history: She is very anxious and tearful today. She says that she is not sure why. She is having anxiety but nobody cares. She was tearful and said she could not breathe. She said that she could not talk to me at this time. After a couple of minutes she covers her head up with her sheet and was crying and did not want to talk. I had told her that there is a place that can take her for rehab and she wanted to know if she can go home and get her stuff first. I told her I did not know about that. They do not want her to be taking Zoloft or any psychotropic medications which she says that have not helped her thus far. We are going to call me facility and see if they can wait until tomorrow if she is feeling more like going. Mental Status Exam MSE Comments: This is a 30-year-old appropriate weight female in hospital scrubs who appears her stated age is tearful and in mild distress. psychomotor activity is normal. Speech is tearful and having difficulty talking Alert, oriented X3 Attention and concentration appeared to be normal. Memory is intact Mood is depressed and anxious. Affect is tearful Thought process is difficult to discern what is going on with her today. She is unable to state why she is so tearful. Thought content: Denies auditory and visual hallucinations. No delusions or paranoia are noted. No current suicidal ideation, and no homicidal ideation. Fund of knowledge is appears to be average. Insight and judgment appear to be fair. Impulse control is fair. Cognition: Patient Appearance: Disheveled/Poor Hygiene Level of Consciousness: Awake, Alert, Appropriate and Follows Commands Patient Cognition Impaired: Yes (ETOH) Ability to Follow Directions: Excellent Patient Orientation (long list): Person, Place, Name, Age and Birthday Comprehension Ability: No Impairment Hallucination Type: None Delusion Description: Not Present Thought Process: Indecisive Affect: Affect Description: Appropriate and Calm Depressive Symptoms: Difficulty Making Decisions, Feelings of Guilt, Feelings of Worthlessness, Hopelessness, Increased Anxiety, Isolating Oneself From Friends and Family, Loss of Energy, Loss of Interest in Activities, Low Self Esteem, Muscle Pain, Significant Weight Gain, Recurrent Thoughts of or Suicide, Unexplained Headaches and Unhappiness Behavior: Patient Behavior: Appropriate and Cooperative Speech Pattern: Appropriate and Clear Vitals/I&O/Wt Last Vital Signs Temp 98.0 F 07/12/21 06:00 Pulse 86 07/12/21 06:30 Resp 18 07/12/21 06:30 BP 112/74 07/12/21 06:30 Pulse Ox 98 07/12/21 06:30 Weight last 48 hrs Weight 61.235 kg Data NPU : 07/09/21 15:10 07/09/21 15:10 A&P Assessment and plan (1) Alcohol use disorder, severe, dependence: Status: Chronic (2) PTSD (post-traumatic stress disorder): Status: Suspected (3) Major depressive disorder, recurrent episode, moderate with anxious distress: Status: Chronic (4) Cannabis dependence with current use: Status: Acute (5) Other stimulant abuse, uncomplicated: Status: Chronic (6) Opiate dependence: Status: Chronic Qualifiers: Substance use status: uncomplicated Qualified Code(s): F11.20 - Opioid dependence, uncomplicated (7) Suicidal ideations: Status: Acute (8) Generalized anxiety disorder: Status: Chronic (9) Borderline personality disorder: Status: Acute Additional A&P Information This is a 30-year-old female with polysubstance abuse and borderline personality disorder who has been trying to get into a rehab facility for the last couple of months and unsuccessful. Plan: 1. Continue current medication. Decrease Zoloft 50 mg. risperidone 1 mg at bedtime. trazodone 50 mg at bedtime. 2. Continue every 15 minute checks for safety. 3. Encourage individual, group and milieu therapies. 4. Encourage sober living treatment after discharge at the highest level of care to which she is willing to commit. 5. We will monitor for safety for herself in the community prior to discharge. Involuntary Hold Information 96 Hour Hold: 96 Hour Involuntary Admission: No 96 Hour Hold Ending Date: 12/11/20 96 Hour Hold Ending Time: 20:06 Attestations NPU Medical Necessity Statement*: Inpatient hospitalization is medically necessary and the clinically appropriate intervention at this time. We will initiate medications and make changes as indicated. 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
--- NOTE | 2021-07-12 13:27 | P.NPUDS_ITS ---
Diagnoses at Discharge Discharge Diagnosis (1) Alcohol use disorder, severe, dependence: Status: Chronic (2) PTSD (post-traumatic stress disorder): Status: Suspected (3) Major depressive disorder, recurrent episode, moderate with anxious distress: Status: Chronic (4) Cannabis dependence with current use: Status: Acute Permanent problem details: Severe (5) Other stimulant abuse, uncomplicated: Status: Chronic Permanent problem details: Methamphetamines (6) Opiate dependence: Status: Chronic Permanent problem details: severe Qualifiers: Substance use status: uncomplicated Qualified Code(s): F11.20 - Opioid dependence, uncomplicated (7) Suicidal ideations: Status: Acute (8) Generalized anxiety disorder: Status: Chronic (9) Borderline personality disorder: Status: Acute Reason for Visit Reason for Visit: ALCOHOL DETOX COMPLICATIONS Brief History: HPI NPU History of Present Illness Maddi Crawley is a 30 year old female who was admitted to the emergency department with the following report: HPI - General Adult General: Chief complaint: Alcohol Stated complaint: ALCOHOL DETOX COMPLICATIONS Time Seen by Provider: 07/09/21 14:25 History of Present Illness: HPI narrative: HPI: [30]yo patient w/ hx of depression and chronic alcohol dependence BIBA for suicidal ideation and wanting to obtain detox. Last drink was this AM.for On arrival, the patient is AAOx3 and cooperative with my evaluation. No focal complaints of chest pain, shortness of breath, palpitations, N/V, focal GI/ complaints. +Reports suicidal thought with plan to overdose with sleeping pills and alcohol. No complaints of hallucinations. She was admitted to the neuropsychiatry unit for definitive treatment of these issues. She says that she has been trying to get into a rehab program for al cohol and methamphetamine addiction for some time but has been unsuccessful. Her children have been in DFS custody for the last few months and she is afraid that she is going to lose them permanently. Her motor is taking care of them currently. She says that she has not had thoughts of hurting herself but that she knows that she is going to kill herself if she continues on her current path. Her and her mother both have borderline personality disorder. She says that she has been seeing things more recently. She says that she mostly sees lights and shadows and figures of people. They are mostly out of the corner of her eye and she knows that they are not real. When she looks directly at them they are following. She also hears things sometimes but knows that they are not real. That does not happen very frequently. She was recently started on Zoloft and increased up to 100 mg. She does not have side effects from that but does not feel that it is doing much for her. Previously her primary problem was depression but now she feels like anxiety is equally as debilitating. She is frequently confined to bed because of anxiety. She agreed to eventually increase the Zoloft to 200 mg. She has been on Abilify a couple of times but that has not worked well for her. She was on Risperdal previously and it worked well but she stopped taking it because she was . She would like to try that again. He has been troxidone but just does not take it on the days that she wants to drink. Her outpatient provider was planning on getting injection and she would like to try that. Hospital Course Hospital Course She slowly acclimated to the individual, group and milieu therapies provided. Zoloft was increased to 100 mg and the risperidone 1 mg was added. She tolerated these doses and showed steady improvement during her stay. 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 She was able to contract for safety outside hospital prior to discharge. During the hospitalization, patient had routine laboratory studies which were within normal limits except for few outliers. Additionally there was a general medical evaluation which was also within normal limits and revealed no new acute processes. Discharge Summary: At the time of discharge, lethality was denied. Mood and anxiety were well managed. Patient endorsed a plan to follow-up with the aftercare recommendations of the treatment team. Patient was evaluated and deemed to be absent credible lethality, and had achieved the maximum benefit from an inpatient hospitalization, so was discharged. Involuntary Hold Information 96 Hour Hold: 96 Hour Involuntary Admission: No 96 Hour Hold Ending Date: 12/11/20 96 Hour Hold Ending Time: 20:06 Mental Status Exam MSE Comments: This is a 30-year-old appropriate weight female in hospital scrubs who appears her stated age is in no acute distress. psychomotor activity is normal. Speech clear and coherent and a regular rate and rhythm. There is no push. Alert, oriented X3 Attention and concentration appeared to be normal. Memory is intact Mood is depressed and anxious. Affect mildly dysphoric Thought process is difficult to discern what is going on with her today. She is unable to state why she is so tearful. Thought content: Denies auditory and visual hallucinations. No delusions or paranoia are noted. No current suicidal ideation, and no homicidal ideation. Fund of knowledge is appears to be average. Insight and judgment appear to be fair. Impulse control is fair. Cognition: Patient Appearance: Disheveled/Poor Hygiene Level of Consciousness: Awake, Alert, Appropriate and Follows Commands Patient Cognition Impaired: Yes (ETOH) Ability to Follow Directions: Excellent Patient Orientation (long list): Person, Place, Name, Age and Birthday Comprehension Ability: No Impairment Hallucination Type: None Delusion Description: Not Present Thought Process: Indecisive Affect: Affect Description: Appropriate and Calm Depressive Symptoms: Difficulty Making Decisions, Feelings of Guilt, Feelings of Worthlessness, Hopelessness, Increased Anxiety, Isolating Oneself From Friends and Family, Loss of Energy, Loss of Interest in Activities, Low Self Esteem, Muscle Pain, Significant Weight Gain, Recurrent Thoughts of or Suicide, Unexplained Headaches and Unhappiness Behavior: Patient Behavior: Appropriate and Cooperative Speech Pattern: Appropriate and Clear Discharge Data Vitals: Last Vital Signs Temp 98.0 F 07/12/21 06:00 Pulse 86 07/12/21 06:30 Resp 18 07/12/21 06:30 BP 112/74 07/12/21 06:30 Pulse Ox 98 07/12/21 06:30 Discharge Plan Discharge Patient Disposition: Home Condition: Stable Prescriptions: New trazodone 50 mg Tablet 50 mg PO BEDTIME PRN (Reason: Insomnia) 30 Days Qty: 30 RF: 0 sertraline 100 mg Tablet 100 mg PO DAILY 30 Days Qty: 30 RF: 0 risperidone 1 mg Tablet 1 mg PO BEDTIME 30 Days Qty: 30 RF: 0 Continued naltrexone 50 mg tablet 50 mg PO QAM RF: 0 lidocaine 5 % adhesive patch,medicated See Rx Instructions .ROUTE .COMPLEX RF: 0 ibuprofen 200 mg Tablet 800 mg PO Q4H PRN (Reason: Pain) RF: 0 folic acid 1 mg tablet 1 mg PO QAM RF: 0 thiamine mononitrate (vit B1) [Vitamin B-1 (mononitrate)] 100 mg tablet 100 mg PO DAILY RF: 0 Discontinued sertraline [Zoloft] 50 mg tablet 100 mg PO QAM RF: 0 Discharge Orders: Discharge Order (Routine); Ordered 07/12/21 Ordered By: Yahir Tyler Discharge Diet: Regular Discharge Activity: Resume usual activity Patient Instructions: Opioid Safety Discharge Attestations NPU Time Spent in Discharge Care*: greater than 30 min Specific Discharge Activities: Specific discharge activities: educating patient, discussing with shoe caser/social workers/dc planners, documenting/other paperwork and evaluating patient/reviewing data Coding Level of Care Code Acute [facility] [place] note Diagnoses Alcohol use disorder, severe, dependence F10.20 PTSD (post-traumatic stress disorder) F43.10 Major depressive disorder, recurrent episode, moderate with anxious distress F33.1 Cannabis dependence with current use F12.20 Other stimulant abuse, uncomplicated F15.10 Opiate dependence F11.20 Substance use status: uncomplicated Suicidal ideations R45.851 Generalized anxiety disorder F41.1 Borderline personality disorder F60.3
[2021-07-12 13:29] VITALS: BP 112/74; PULSE 86; RESP 18; O2SAT 98
[2021-07-12 14:00] VITALS: BP 112/74; PULSE 86; RESP 18; TEMP 36.7; O2SAT 98
== END 2021-07-12 14:32 | disposition home or self-care (01) | DRG 880 ==
LOC: ER 14:25 → NP 17:31
PROVIDERS: Admitting Provider Psychiatry & Neurology Psychiatry; Emergency Provider Emergency Medicine; Visit Provider Psychiatry & Neurology Psychiatry
DX: F41.1 Generalized anxiety disorder (principal); F33.1 Major depressive disorder, recurrent, moderate; R45.851 Suicidal ideations; F10.20 Alcohol dependence, uncomplicated; F15.10 Other stimulant abuse, uncomplicated; F12.20 Cannabis dependence, uncomplicated; F17.210 Nicotine dependence, cigarettes, uncomplicated; Z79.891 Long term (current) use of opiate analgesic; F43.10 Post-traumatic stress disorder, unspecified; F60.3 Borderline personality disorder; F60.89 Other specific personality disorders
CPT/HCPCS: 36416; 80048; 80306; 80307; 81025; 82962; 85025; 93005; 97150; 97165; 99285; Q0162

== ENCOUNTER → 2021-09-09 07:55 | Outpatient (BNVA) | payer MEDICAID, SELFPAY | PROVIDERS: Visit Provider Nurse Practitioner Psychiatric/Mental Health | DX: F33.1 Major depressive disorder, recurrent, moderate (principal); F43.10 Post-traumatic stress disorder, unspecified; F41.1 Generalized anxiety disorder; F10.20 Alcohol dependence, uncomplicated; F15.10 Other stimulant abuse, uncomplicated; F11.20 Opioid dependence, uncomplicated; F12.20 Cannabis dependence, uncomplicated | CPT/HCPCS: 99214 ==

== ENCOUNTER → 2021-11-01 14:11 | Outpatient (BNVA) | payer MEDICAID, SELFPAY | PROVIDERS: Visit Provider Nurse Practitioner Psychiatric/Mental Health | DX: F33.1 Major depressive disorder, recurrent, moderate (principal); F10.20 Alcohol dependence, uncomplicated; F15.10 Other stimulant abuse, uncomplicated; F11.20 Opioid dependence, uncomplicated; F12.20 Cannabis dependence, uncomplicated; F43.10 Post-traumatic stress disorder, unspecified; F41.1 Generalized anxiety disorder | CPT/HCPCS: 99214 ==

== ENCOUNTER → 2022-03-08 09:04 | Outpatient (BNVA) | payer MEDICAID, SELFPAY | PROVIDERS: PCP Nurse Practitioner Family; Visit Provider Podiatrist Foot & Ankle Surgery | DX: M76.821 Posterior tibial tendinitis, right leg (principal); S99.919A Unspecified injury of unspecified ankle, initial encounter; W17.89XA Other fall from one level to another, initial encounter | CPT/HCPCS: 73610 ==

== ENCOUNTER → 2022-05-02 14:23 | Outpatient (BNVA) | payer MEDICAID, SELFPAY | PROVIDERS: PCP Nurse Practitioner Family; Visit Provider Podiatrist Foot & Ankle Surgery | DX: M76.821 Posterior tibial tendinitis, right leg (principal); S99.919A Unspecified injury of unspecified ankle, initial encounter; X58.XXXA Exposure to other specified factors, initial encounter | CPT/HCPCS: 73630 ==

== ENCOUNTER 2023-07-28 20:21 | Emergency (ER) | payer MEDICAID, SELFPAY ==
[2023-07-28 20:34] VITALS: BP 141/97; PULSE 132; RESP 16; TEMP 36.9; O2SAT 99
--- NOTE | 2023-07-28 20:47 | ED.C_ITS ---
HPI - Psych 2 General: Chief Complaint: Psychiatric Symptoms Stated Complaint: SI Time Seen by Provider: 07/28/23 20:37 History of Present Illness: Patient presents to the ER with complaints of suicidal ideation. Patient says she is hearing voices and has impulsive thoughts and impulse control problems. Patient said she was going to stab herself tonight. But then came in to get help instead. Patient said she recently did try to overdose on Tylenol last week. Patient says she is been off all of her medications for over 1 year. Review of the chart does show patient has been admitted several times at this facility with the last one being June 2021. Review of Systems 2 General: Reports: 10 or more systems reviewed and unremarkable except in HPI and below PFSH ED 2 PFSH: Medical History Alcohol use disorder, severe, dependence Nicotine dependence, cigarettes, uncomplicated PTSD (post-traumatic stress disorder) Major depressive disorder, recurrent episode, moderate with anxious distress Cannabis dependence with current use Severe Other stimulant abuse, uncomplicated Methamphetamines Opiate dependence severe Generalized anxiety disorder Major depressive disorder Social History Smoking and tobacco/nicotine status: never used tobacco/nicotine Quit status (tobacco/nicotine): not considering quitting Second hand smoke exposure: Yes Alcohol intake: current Substance/Drug Use: current Physical Exam 2 Const: COMMON NORMALS: no acute distress, average body habitus, patient oriented x3, no limitations, healthy appearing, alert and well nourished HENMT: COMMON NORMALS: normocephalic, atraumatic, hearing grossly normal bilaterally, external ears normal, Normal external nose present, moist oral mucous membranes and oropharynx normal HEAD & SCALP: normocephalic and atraumatic NOSE: Normal external nose present EXTERNAL EAR: Yes external ears normal Neck/C-Spine: COMMON NORMALS: no JVD Chest: COMMONS NORMALS: normal inspection of the chest and normal palpation of entire chest wall Resp: COMMON NORMALS: normal respiratory effort, No retractions, No use of accessory muscles and clear to auscultation bilaterally AUSCULTATION: clear to auscultation bilaterally Cardio: COMMON NORMALS: no JVD, regular rate, regular rhythm, S1 normal heart sound present, S2 normal heart sound present, No gallops present (Cardio), No clicks present (Cardio) and No murmurs present (Cardio) RATE: regular rate RHYTHM: regular rhythm HEART SOUNDS: S1 normal heart sound present and S2 normal heart sound present GI: COMMON NORMALS: Normal to inspection, nondistended, normoactive bowel sounds present, Soft to palpation, non-tender, No hepatosplenomegaly present and no masses PALPATION: Yes Soft to palpation and Yes No hepatosplenomegaly present Neuro: COMMON NORMALS: patient oriented x3 SENSORIUM/ORIENTATION: Yes alert Course 2 Vital Signs: Vital signs: Vital Signs Temperature 98.4 F 07/28/23 20:34 Pulse Rate 132 H 07/28/23 20:34 Respiratory Rate 16 07/28/23 20:34 Blood Pressure 141/97 07/28/23 20:34 Pulse Oximetry 99 07/28/23 20:34 [facility] - Psych Medical Decision Making Patient be worked up in a psychiatric medical clearance fashion and once cleared the appropriate psychiatric facilities will be called until we get acceptance. Differential Diagnosis Likely suicidal ideation and depression Medical Records I reviewed the patient's medical records. Lab Data I reviewed the patient's lab results. 07/28/23 21:37 07/28/23 21:37 Radiology Impressions Chest X-Ray 07/28/23 22:08 IMPRESSION: 1. No acute cardiopulmonary abnormality. Laboratory Results WBC 6.71 10^3/uL (3.29-11.43) 07/28/23 21:37 RBC 4.29 10^6/uL (3.85-5.65) 07/28/23 21:37 Hgb 14.00 g/dL (11.27-16.99) 07/28/23 21:37 Hct 41.6 % (36-47) 07/28/23 21:37 MCV 97.0 fl (85-98) 07/28/23 21:37 MCH 32.6 pg (27-33) 07/28/23 21:37 MCHC 33.7 g/dL (30-55) 07/28/23 21:37 RDW 13.1 % (12.1-15.1) 07/28/23 21:37 Plt Count 296 10^3/cmm (157-399) 07/28/23 21:37 MPV 9.9 fL (7.4-10.4) 07/28/23 21:37 Neut % (Auto) 53.1 % 07/28/23 21:37 Lymph % (Auto) 39.3 % 07/28/23 21:37 [place] % (Auto) 5.4 % 07/28/23 21:37 Eos % (Auto) 1.5 % 07/28/23 21:37 Baso % (Auto) 0.4 % 07/28/23 21:37 Neut # (Auto) 3.56 10^3/uL (1.8-7.7) 07/28/23 21:37 Lymph # (Auto) 2.6 10^3/uL (0.8-4.8) 07/28/23 21:37 [place] # (Auto) 0.4 10^3/uL (0.2-0.9) 07/28/23 21:37 Eos # (Auto) 0.1 10^3/uL (0.0-0.8) 07/28/23 21:37 Baso # (Auto) 0.0 10^3/uL (0.0-0.1) 07/28/23 21:37 Nucleated RBC % (auto) 0 % 07/28/23 21:37 Nucleated RBCs # 0.0 /100WBC 07/28/23 21:37 Sodium 137 mmol/L (136-145) 07/28/23 21:37 Potassium 3.3 mmol/L (3.5-5.1) L 07/28/23 21:37 Chloride 102 mmol/L (98-107) 07/28/23 21:37 Carbon Dioxide 22 mmol/L (22-29) 07/28/23 21:37 Anion Gap 16.3 (5-19) 07/28/23 21:37 BUN 7 mg/dL (6-20) 07/28/23 21:37 Creatinine 0.6 mg/dL (0.5-0.9) 07/28/23 21:37 GFR Calculation 117.4 mL/min (90-130) 07/28/23 21:37 Glucose 92 mg/dL (65-115) 07/28/23 21:37 Calculated Osmolality 282 mOsm/kg (285-295) L 07/28/23 21:37 Calcium 8.9 mg/dL (8.5-10.5) 07/28/23 21:37 Total Bilirubin 0.3 mg/dL (0.15-1.2) 07/28/23 21:37 AST 21 U/L (0-32) 07/28/23 21:37 ALT 14 U/L (0-33) 07/28/23 21:37 Alkaline Phosphatase 91 U/L (35-105) 07/28/23 21:37 Total Protein 6.8 g/dL (6.6-8.7) 07/28/23 21:37 Albumin 4.0 g/dL (3.5-5.2) 07/28/23 21:37 Globulin 2.8 g/dL (1.3-4.6) 07/28/23 21:37 TSH 2.32 uIU/mL (0.27-4.20) 07/28/23 21:37 HCG, Qual Negative (Negative) 07/28/23 20:40 Urine Color Colorless (Yellow) 07/28/23 20:40 Urine Appearance Clear (CLEAR) 07/28/23 20:40 Urine pH 7 (5-7) 07/28/23 20:40 Ur Specific [place] 1.005 (1.005-1.030) 07/28/23 20:40 Urine Protein Neg (Negative) 07/28/23 20:40 Urine Glucose (UA) Norm (Normal) 07/28/23 20:40 Urine Ketones Negative (Negative) 07/28/23 20:40 Urine Blood Neg (Negative) 07/28/23 20:40 Urine Nitrate Negative (Negative) 07/28/23 20:40 Urine Bilirubin Neg (Negative) 07/28/23 20:40 Urine Urobilinogen Norm mg/dL (Negative) 07/28/23 20:40 Ur Leukocyte Esterase Trace (Negative) H 07/28/23 20:40 Urine RBC 0-4 /hpf (0-2) H 07/28/23 20:40 Urine WBC 0-4 /hpf (0-5) H 07/28/23 20:40 Ur Squamous Epith Cells 0-4 /hpf (0-5) H 07/28/23 20:40 Amorphous Sediment 1+ /hpf 07/28/23 20:40 Urine Bacteria Trace /hpf (NONE) 07/28/23 20:40 Salicylates < 0.3 mg/dL (3-10) L 07/28/23 21:37 Urine Opiates Screen Negative ng/mL (Negative) 07/28/23 20:40 Acetaminophen < 5.0 ug/mL (10-30) L 07/28/23 21:37 Ur Barbiturates Screen Negative ng/mL (Negative) 07/28/23 20:40 Ur Phencyclidine Scrn Negative ng/mL (Negative) 07/28/23 20:40 Ur Amphetamines Screen Positive ng/mL (Negative) H 07/28/23 20:40 U Benzodiazepines Scrn Negative ng/mL (Negative) 07/28/23 20:40 Urine Cocaine Screen Negative ng/mL (Negative) 07/28/23 20:40 U Marijuana (THC) Screen Positive ng/mL (Negative) H 07/28/23 20:40 Ethyl Alcohol 88 mg/dL (0-10) H 07/28/23 21:37 Influenza Type A Ag negative (Negative) 07/28/23 22:44 Influenza Type B Ag negative (Negative) 07/28/23 22:44 SARS-CoV-2 Ag (Rapid) negative (Negative) 07/28/23 22:44 All radiology interpretation(s) finalized by discharge EKG Data EKG 1: I personally reviewed and interpreted this EKG as follows: EKG interpretation date: 07/28/23 EKG interpretation time: 22:36 Prior EKG tracings: not available for review Interpretation: Ventricular rate 89 beats minute, CO interval 128, QRS duration 80, QTc of 397, sinus rhythm, no ST-T wave changes Discharge Plan Discharge Patient Disposition: Xfer Psychiatric Hosp Clinical Impression: Suicidal ideation, Depression Condition: Stable Prescriptions: No Action naltrexone 50 mg tablet 50 mg PO BEDTIME Qty: 30 3RF Rx Instructions: Take one tablet at bedtime sertraline [Zoloft] 100 mg tablet 150 mg PO .morning 30 Days Qty: 45 3RF Rx Instructions: Take one and half tablets every morning hydroxyzine HCl 50 mg tablet 50 mg PO BID PRN (Reason: anxiety) Qty: 60 3RF Rx Instructions: Take one tablet twice per day as needed for anxiety buspirone 10 mg tablet 20 mg PO .morning Qty: 60 3RF Rx Instructions: Take two tablets every morning ondansetron HCl [Zofran] 4 mg tablet 4 mg PO BID PRN (Reason: nausea and vomiting) Qty: 60 2RF Rx Instructions: Take one tablet twice per day as needed for nausea/vomiting diclofenac sodium [Voltaren Arthritis Pain] 1 % gel 2 g topical QID Qty: 100 3RF Rx Instructions: apply to foot where it hurts Vivitrol 380 mg suspension,extended rel recon 380 mg IM .L7Rsuns Qty: 1 6RF Rx Instructions: IM injection once every four weeks ibuprofen 200 mg Tablet 800 mg PO Q4H PRN (Reason: Pain) Referrals: Leny Porter FNP [Primary Care Provider] - Coding 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
[2023-07-28 21:05] LABS: Amphetamines Screen Urine Positive (Negative); Barbiturates Screen Urine Negative (Negative); Benzodiazepines Screen Urine Negative (Negative); Cocaine Screen Urine Negative (Negative); Opiate Screen Urine Negative (Negative); PCP Screen Urine Negative (Negative); THC Screen Urine Positive (Negative)
[2023-07-28 21:18] LABS: HCG Qualitative Urine. Negative (Negative)
[2023-07-28 21:19] LABS: Add Urine Microscopic? YES; Amorphous Sediment Urine 1+ /hpf; Bacteria Urine TRACE /hpf; Bilirubin Urine Neg (Negative); Blood Urine Neg (Negative); Glucose Urine UA Norm (Normal); Ketones Urine Negative (Negative); Leukocyte Esterase Urine Trace (Negative); Nitrate Urine Negative (Negative); Protein Urine Neg (Negative); RBC Urine 0-4 /hpf (0-2); Specific Gravity, Urine 1.005 (1.005-1.030); Squamous Epithelial Cell Urine 0-4 /hpf (0-5); Urine Appearance Clear (CLEAR); Urine Color Colorless (Yellow); Urobilinogen Urine Norm (Negative); WBC Urine 0-4 /hpf (0-5); pH Urine 7 (5-7)
[2023-07-28 21:39] LABS: Basophils % 0.4 %; Eosinophils # 0.1 10^3/uL (0.0-0.8); Eosinophils % 1.5 %; Hematocrit 41.6 % (36-47); Lymphocytes # 2.6 10^3/uL (0.8-4.8); Lymphocytes % 39.3 %; Mean Corpuscular HGB Conc 33.7 g/dL (30-55); Mean Corpuscular Hemoglobin 32.6 pg (27-33); Mean Platelet Volume 9.9 fL (7.4-10.4); Monocytes # 0.4 10^3/uL (0.2-0.9); Monocytes % 5.4 %; Neutrophils # 3.56 10^3/uL (1.8-7.7); Neutrophils % 53.1 %; Nucleated Red Blood Cells % 0 %; Platelet Count 296 10^3/cmm (157-399); Red Blood Count 4.29 10^6/uL (3.85-5.65); Red Cell Distribution Width 13.1 % (12.1-15.1); White Blood Count 6.71 10^3/uL (3.29-11.43)
[2023-07-28 22:04] LABS: Alanine Aminotransferase 14 U/L (0-33); Alcohol Level 88 mg/dL (0-10); Alkaline Phosphatase 91 U/L (35-105); Anion Gap 16.3 (5-19); Aspartate Amino Transferase 21 U/L (0-32); Blood Urea Nitrogen 7 mg/dL (6-20); Calcium 8.9 mg/dL (8.5-10.5); Carbon Dioxide 22 mmol/L (22-29); Chloride 102 mmol/L (98-107); Globulin 2.8 g/dL (1.3-4.6); Glomerular Filtration Rate 117.4 mL/min (90-130); Glucose 92 mg/dL (65-115); Osmolality Calculated 282 mOsm/kg (285-295); Potassium 3.3 mmol/L (3.5-5.1); Sodium 137 mmol/L (136-145); Total Bilirubin 0.3 mg/dL (0.15-1.2); Total Protein 6.8 g/dL (6.6-8.7)
[2023-07-28 22:05] LABS: Acetaminophen < 5.0 ug/mL (10-30); Salicylate < 0.3 mg/dL (3-10)
--- NOTE | 2023-07-28 22:08 | XRR_ITS ---
PROCEDURE INFORMATION: Exam: XR Chest Exam date and time: 07/28/2023 10:28 PM Age: 32 years old Clinical indication: Other: Tachycardia; Patient HX: Tachycardic TECHNIQUE: Imaging protocol: Radiologic exam of the chest. Views: 1 view. COMPARISON: CR XR chest 1V portable [id number] 01/05/2020 4:47 PM FINDINGS: Lungs: No focal consolidation. Pleural spaces: No evidence of pneumothorax. No evidence of pleural effusion. Heart/Mediastinum: Cardiomediastinal silhouette is within normal limits. Bones/joints: No evidence of acute osseous abnormality. XR/XR chest 1V portable [id number] IMPRESSION: 1. No acute cardiopulmonary abnormality.
--- NOTE | 2023-07-28 22:36 | ECG_ITS ---
[facility] Test Date: 2023-07-28 Pat Name: Maddi Crawley Department: Room: Gender: Female Waist Pleater: : 1990 Requested By: Jim Orellana Order Number: [id number] Ba MD: Bob Ty M.D. Measurements Intervals [place] Rate: 89 P: 65 DC: 128 QRS: 62 QRSD: 80 T: 51 QT: 350 QTc: 428 Interpretive Statements SINUS RHYTHM Compared to ECG 07/09/2021 14:16:12 T-wave abnormality no longer present Electronically Signed On 07-29-2023 23:12:19 SIZE CHANGER by Bob Ty M.D. [id number]
[2023-07-28 22:54] LABS: Thyroid Stimulating Hormone 2.32 uIU/mL (0.27-4.20)
[2023-07-28 23:10] LABS: Influenza A by IFA negative (Negative); Influenza B by IFA negative (Negative); SARS Covid-2 Antigen negative (Negative)
--- NOTE | 2023-07-29 06:01 | W.ED.PSYCHS ---
HPI - Psych General: Chief Complaint: Psychiatric Symptoms Stated Complaint: SI Time Seen by Provider: 07/28/23 20:37 History of Present Illness: This patient was signed out to myself Dr. Crews by Dr. Orellana please refer to Dr. Orellana's documentation in regards to the patient's HPI and medical decision making [facility] ED PFS: Medical History Alcohol use disorder, severe, dependence Nicotine dependence, cigarettes, uncomplicated PTSD (post-traumatic stress disorder) Major depressive disorder, recurrent episode, moderate with anxious distress Cannabis dependence with current use Severe Other stimulant abuse, uncomplicated Methamphetamines Opiate dependence severe Generalized anxiety disorder Major depressive disorder Social History Smoking and tobacco/nicotine status: never used tobacco/nicotine Quit status (tobacco/nicotine): not considering quitting Second hand smoke exposure: Yes Alcohol intake: current Substance/Drug Use: current Course ED course: This patient was signed out to myself Dr. Crews by Dr. Orellana at 0600. Patient has been finding medically cleared for psychiatric placement patient has not required anything for sedation or anxiety. Currently [facility] is evaluating the patient's case for possible acceptance will continue to follow no additional needs or concerns noted at this time. Vital Signs: Vital signs: Vital Signs Temperature 98.4 F 07/28/23 20:34 Pulse Rate 76 07/29/23 06:36 Respiratory Rate 16 07/29/23 06:36 Blood Pressure 121/78 07/29/23 06:36 Pulse Oximetry 97 07/29/23 06:36 MDM - Psych Medical Decision Making s patient was signed out to myself Dr. Crews by Dr. Orellana please refer to Dr. Orellana's documentation in regards to the patient's HPI and medical decision making Lab Data 07/28/23 21:37 07/28/23 21:37 Radiology Impressions Chest X-Ray 07/28/23 22:08 IMPRESSION: 1. No acute cardiopulmonary abnormality. Laboratory Results WBC 6.71 10^3/uL (3.29-11.43) 07/28/23 21:37 RBC 4.29 10^6/uL (3.85-5.65) 07/28/23 21:37 Hgb 14.00 g/dL (11.27-16.99) 07/28/23 21:37 Hct 41.6 % (36-47) 07/28/23 21:37 MCV 97.0 fl (85-98) 07/28/23 21:37 MCH 32.6 pg (27-33) 07/28/23 21:37 MCHC 33.7 g/dL (30-55) 07/28/23 21:37 RDW 13.1 % (12.1-15.1) 07/28/23 21:37 Plt Count 296 10^3/cmm (157-399) 07/28/23 21:37 MPV 9.9 fL (7.4-10.4) 07/28/23 21:37 Neut % (Auto) 53.1 % 07/28/23 21:37 Lymph % (Auto) 39.3 % 07/28/23 21:37 [place] % (Auto) 5.4 % 07/28/23 21:37 Eos % (Auto) 1.5 % 07/28/23 21:37 Baso % (Auto) 0.4 % 07/28/23 21:37 Neut # (Auto) 3.56 10^3/uL (1.8-7.7) 07/28/23 21:37 Lymph # (Auto) 2.6 10^3/uL (0.8-4.8) 07/28/23 21:37 [place] # (Auto) 0.4 10^3/uL (0.2-0.9) 07/28/23 21:37 Eos # (Auto) 0.1 10^3/uL (0.0-0.8) 07/28/23 21:37 Baso # (Auto) 0.0 10^3/uL (0.0-0.1) 07/28/23 21:37 Nucleated RBC % (auto) 0 % 07/28/23 21:37 Nucleated RBCs # 0.0 /100WBC 07/28/23 21:37 Sodium 137 mmol/L (136-145) 07/28/23 21:37 Potassium 3.3 mmol/L (3.5-5.1) L 07/28/23 21:37 Chloride 102 mmol/L (98-107) 07/28/23 21:37 Carbon Dioxide 22 mmol/L (22-29) 07/28/23 21:37 Anion Gap 16.3 (5-19) 07/28/23 21:37 BUN 7 mg/dL (6-20) 07/28/23 21:37 Creatinine 0.6 mg/dL (0.5-0.9) 07/28/23 21:37 GFR Calculation 117.4 mL/min (90-130) 07/28/23 21:37 Glucose 92 mg/dL (65-115) 07/28/23 21:37 Calculated Osmolality 282 mOsm/kg (285-295) L 07/28/23 21:37 Calcium 8.9 mg/dL (8.5-10.5) 07/28/23 21:37 Total Bilirubin 0.3 mg/dL (0.15-1.2) 07/28/23 21:37 AST 21 U/L (0-32) 07/28/23 21:37 ALT 14 U/L (0-33) 07/28/23 21:37 Alkaline Phosphatase 91 U/L (35-105) 07/28/23 21:37 Total Protein 6.8 g/dL (6.6-8.7) 07/28/23 21:37 Albumin 4.0 g/dL (3.5-5.2) 07/28/23 21:37 Globulin 2.8 g/dL (1.3-4.6) 07/28/23 21:37 TSH 2.32 uIU/mL (0.27-4.20) 07/28/23 21:37 HCG, Qual Negative (Negative) 07/28/23 20:40 Urine Color Colorless (Yellow) 07/28/23 20:40 Urine Appearance Clear (CLEAR) 07/28/23 20:40 Urine pH 7 (5-7) 07/28/23 20:40 Ur Specific [place] 1.005 (1.005-1.030) 07/28/23 20:40 Urine Protein Neg (Negative) 07/28/23 20:40 Urine Glucose (UA) Norm (Normal) 07/28/23 20:40 Urine Ketones Negative (Negative) 07/28/23 20:40 Urine Blood Neg (Negative) 07/28/23 20:40 Urine Nitrate Negative (Negative) 07/28/23 20:40 Urine Bilirubin Neg (Negative) 07/28/23 20:40 Urine Urobilinogen Norm mg/dL (Negative) 07/28/23 20:40 Ur Leukocyte Esterase Trace (Negative) H 07/28/23 20:40 Urine RBC 0-4 /hpf (0-2) H 07/28/23 20:40 Urine WBC 0-4 /hpf (0-5) H 07/28/23 20:40 Ur Squamous Epith Cells 0-4 /hpf (0-5) H 07/28/23 20:40 Amorphous Sediment 1+ /hpf 07/28/23 20:40 Urine Bacteria Trace /hpf (NONE) 07/28/23 20:40 Salicylates < 0.3 mg/dL (3-10) L 07/28/23 21:37 Urine Opiates Screen Negative ng/mL (Negative) 07/28/23 20:40 Acetaminophen < 5.0 ug/mL (10-30) L 07/28/23 21:37 Ur Barbiturates Screen Negative ng/mL (Negative) 07/28/23 20:40 Ur Phencyclidine Scrn Negative ng/mL (Negative) 07/28/23 20:40 Ur Amphetamines Screen Positive ng/mL (Negative) H 07/28/23 20:40 U Benzodiazepines Scrn Negative ng/mL (Negative) 07/28/23 20:40 Urine Cocaine Screen Negative ng/mL (Negative) 07/28/23 20:40 U Marijuana (THC) Screen Positive ng/mL (Negative) H 07/28/23 20:40 Ethyl Alcohol 88 mg/dL (0-10) H 07/28/23 21:37 Influenza Type A Ag negative (Negative) 07/28/23 22:44 Influenza Type B Ag negative (Negative) 07/28/23 22:44 SARS-CoV-2 Ag (Rapid) negative (Negative) 07/28/23 22:44 No radiology studies performed this visit Other Data This patient was signed out to myself Dr. Crews by Dr. Orellana at 0600. Currently waiting for psychiatric placement this time Patient being assessed by self at [facility] patient was going excepted there by Dr. Chavez patient will be going by ground transportation. 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
[2023-07-29 06:36] VITALS: BP 121/78; PULSE 76; RESP 16; O2SAT 97
== END 2023-07-29 08:35 ==
PROVIDERS: Emergency Medicine; Emergency Provider Emergency Medicine; PCP Nurse Practitioner Family
DX: R45.851 Suicidal ideations (principal); F32.A Depression, unspecified; Z11.52 Encounter for screening for COVID-19; Z77.22 Contact with and (suspected) exposure to environmental tobacco smoke (acute) (chronic)
CPT/HCPCS: 36415; 71045; 80053; 80306; 80307; 81001; 81025; 84443; 85025; 87426; 87804; 93005; 99285

== ENCOUNTER 2023-12-08 13:07 | Inpatient (IN) | payer SELFPAY ==
[2023-12-08 13:12] VITALS: BP 116/79; PULSE 140; RESP 25; TEMP 37; O2SAT 98
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
--- NOTE | 2023-12-08 13:27 | CT_ITS ---
WS: [id number] CT FACIAL BONES TECHNIQUE: Noncontrast facial bones with coronal and sagittal reformatted images. CLINICAL INFORMATION: facial COMPARISON: None. DLP: 2067.[address] scans at [facility] use at least one of these dose optimization techniques: automated e xposure control; mA and/or kV adjustment per patient size (includes targeted exams where dose is matc hed to clinical indication); or iterative reconstruction. FINDINGS: Paranasal sinuses are well aerated. Tiny retention cyst RIGHT maxillary sinus. Mastoid air cells are well aerated. Normal posterior nasopharynx. Normal parapharyngeal fat. Normal visualized soft tissues. Orbits are normal in appearance. Normal lateral orbits. Normal spheno id wings. Mild chronic nasal septal deviation. Anterior nasal bones are normal. Pterygoid processes a re normal. Normal pterygoid plates. No evidence of mandibular fracture or dislocation. Degenerative c hanges with flattening of the mandibular condyles bilaterally. No evidence of mandibular fracture or dislocation. Visualized upper cervical spine is normal. No other suspicious findings. CT/CT facial bones wo con* [id number] IMPRESSION: No acute facial fractures.
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
[2023-12-08 13:42] LABS: Basophils % 0.4 %; Eosinophils # 0.2 10^3/uL (0.0-0.8); Eosinophils % 1.9 %; Hematocrit 41.4 % (36-47); Lymphocytes # 1.9 10^3/uL (0.8-4.8); Lymphocytes % 20.3 %; Mean Corpuscular HGB Conc 33.1 g/dL (30-55); Mean Corpuscular Volume 96.7 fl (85-98); Mean Platelet Volume 10.3 fL (7.4-10.4); Monocytes # 0.7 10^3/uL (0.2-0.9); Monocytes % 7.1 %; Neutrophils # 6.55 10^3/uL (1.8-7.7); Neutrophils % 69.9 %; Nucleated Red Blood Cells % 0 %; Platelet Count 331 10^3/cmm (157-399); Red Blood Count 4.28 10^6/uL (3.85-5.65); Red Cell Distribution Width 13.1 % (12.1-15.1); White Blood Count 9.39 10^3/uL (3.29-11.43)
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
[2023-12-08 14:00] LABS: Alanine Aminotransferase 14 U/L (0-33); Alcohol Level 16 mg/dL (0-10); Alkaline Phosphatase 92 U/L (35-105); Anion Gap 17.3 (5-19); Aspartate Amino Transferase 19 U/L (0-32); Blood Urea Nitrogen 11 mg/dL (6-20); Carbon Dioxide 22 mmol/L (22-29); Chloride 104 mmol/L (98-107); Globulin 3.1 g/dL (1.3-4.6); Glomerular Filtration Rate 117.4 mL/min (90-130); Glucose 95 mg/dL (65-115); Osmolality Calculated 287 mOsm/kg (285-295); Potassium 4.3 mmol/L (3.5-5.1); Sodium 139 mmol/L (136-145); Total Bilirubin 0.3 mg/dL (0.15-1.2); Total Protein 7.1 g/dL (6.6-8.7)
[2023-12-08 14:01] LABS: Acetaminophen < 5.0 ug/mL (10-30); HCG, Serum Qual Negative (Negative); Salicylate < 0.3 mg/dL (3-10)
[2023-12-08] MEDS: sodium chloride 0.9% 1,000 ML 999 ML IV (14:06)
[2023-12-08 15:19] VITALS: BP 110/73; PULSE 108; RESP 24; O2SAT 93
--- NOTE | 2023-12-08 15:53 | PC.NURSE ---
IV removed, catheter intact.
[2023-12-08 15:54] VITALS: BP 110/73; PULSE 108; RESP 24; O2SAT 93
[2023-12-08 16:02] VITALS: BP 112/80; PULSE 114; RESP 18; TEMP 36.9; O2SAT 98
[2023-12-08] MEDS: ibuprofen 600 mg Tablet PO (17:09)
[2023-12-08] MEDS: hyDROXYzine 25 mg Capsule 50 MG PO (17:09)
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
[2023-12-08 19:02] LABS: Amphetamines Screen Urine Positive (Negative); Barbiturates Screen Urine Negative (Negative); Benzodiazepines Screen Urine Positive (Negative); Cocaine Screen Urine Negative (Negative); Opiate Screen Urine Negative (Negative); PCP Screen Urine Negative (Negative); THC Screen Urine Positive (Negative)
[2023-12-08 20:37] VITALS: BP 93/59; PULSE 113; RESP 16; TEMP 36.8; O2SAT 95
[2023-12-09] VITALS: BP 111/73; PULSE 88; RESP 15; O2SAT 98
[2023-12-09 03:53] VITALS: BP 112/78; PULSE 84; RESP 16; O2SAT 97
[2023-12-09 08:00] VITALS: BP 101/73; PULSE 88; RESP 20; TEMP 36; O2SAT 97
[2023-12-09] MEDS: folic acid 1 mg Tablet PO (08:38)
[2023-12-09] MEDS: multivitamin therapeutic Tablet 1 TAB PO (08:38)
[2023-12-09] MEDS: thiamine 100 mg Tablet PO (08:38)
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
[2023-12-09 12:00] VITALS: BP 157/84; PULSE 100; RESP 20; TEMP 36.8; O2SAT 98
[2023-12-09 16:00] VITALS: BP 132/91; PULSE 83; RESP 20; TEMP 36.8; O2SAT 99
[2023-12-09 19:44] VITALS: BP 111/75; PULSE 95; RESP 16; TEMP 36.9; O2SAT 97
[2023-12-09] MEDS: trazodone 50 mg Tablet PO (20:38)
[2023-12-09] MEDS: acetaminophen 325 mg Tablet 650 MG PO (20:38)
[2023-12-10] VITALS: BP 96/60; PULSE 86; RESP 16; O2SAT 98
[2023-12-10 04:00] VITALS: BP 109/78; PULSE 109; RESP 18; TEMP 36.8; O2SAT 97
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
[2023-12-10] MEDS: fluoxetine 20 mg Capsule PO (13:29)
[2023-12-10] MEDS: nicotine 21 mg Patch 1 PATCH TRANSDERMA (13:29)
[2023-12-10 14:00] VITALS: BP 102/72; PULSE 105; RESP 20; TEMP 36.9; O2SAT 98
[2023-12-10] MEDS: gabapentin 100 mg Capsule PO ×2 (14:47→20:45)
[2023-12-10] MEDS: ibuprofen 600 mg Tablet PO (16:26)
[2023-12-10 20:00] VITALS: BP 123/82; PULSE 100; RESP 16; TEMP 36.6; O2SAT 97
[2023-12-10] MEDS: trazodone 50 mg Tablet PO (20:46)
[2023-12-11 06:00] VITALS: BP 103/71; PULSE 94; RESP 17; TEMP 36.7; O2SAT 97
[2023-12-11] MEDS: multivitamin therapeutic Tablet 1 TAB PO (08:45)
[2023-12-11] MEDS: fluoxetine 20 mg Capsule PO (08:45)
[2023-12-11] MEDS: folic acid 1 mg Tablet PO (08:45)
[2023-12-11] MEDS: thiamine 100 mg Tablet PO (08:45)
[2023-12-11] MEDS: gabapentin 100 mg Capsule PO ×3 (08:45→20:35)
[2023-12-11] MEDS: nicotine 4 mg lozenge MUCOUS MEM (12:50)
[2023-12-11 14:00] VITALS: BP 111/82; PULSE 141; RESP 17; TEMP 36.6; O2SAT 100
[2023-12-11] MEDS: acetaminophen 325 mg Tablet 650 MG PO (16:00)
--- NOTE | 2023-12-11 18:07 | PC.NURSE ---
STAFF PERFORMED RANDOM ROOM CHECK. NO OUTSIDE CONTRABAND WAS FOUND IN PT ROOM OR AREA. PT WAS COOPERATIVE WITH ROOM SEARCH.
--- NOTE | 2023-12-11 18:07 | PC.NURSE ---
STAFF PERFORMED RANDOM ROOM CHECK. NO OUTSIDE CONTRABAND WAS FOUND IN PT ROOM OR AREA. PT WAS COOPERATIVE WITH ROOM SEARCH.
[2023-12-11] MEDS: trazodone 50 mg Tablet PO (20:36)
[2023-12-11 21:15] VITALS: BP 109/76; PULSE 111; RESP 17; TEMP 36.8; O2SAT 99
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
[2023-12-12 06:00] VITALS: BP 101/69; PULSE 102; RESP 18; TEMP 36.6; O2SAT 98
[2023-12-12] MEDS: thiamine 100 mg Tablet PO (08:18)
[2023-12-12] MEDS: folic acid 1 mg Tablet PO (08:18)
[2023-12-12] MEDS: fluoxetine 20 mg Capsule PO (08:18)
[2023-12-12] MEDS: nicotine 4 mg lozenge MUCOUS MEM ×3 (08:18→18:13)
[2023-12-12] MEDS: multivitamin therapeutic Tablet 1 TAB PO (08:18)
[2023-12-12] MEDS: gabapentin 100 mg Capsule PO ×2 (08:18→14:57)
[2023-12-12] MEDS: hyDROXYzine 25 mg Capsule 50 MG PO ×2 (08:18→15:12)
[2023-12-12 14:00] VITALS: BP 112/74; PULSE 110; RESP 18; TEMP 36.4; O2SAT 98
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
== END 2023-12-12 18:57 | disposition home or self-care (01) | DRG 885 ==
LOC: ER 15:28 → NP 15:31
PROVIDERS: Admitting Provider Psychiatry & Neurology Psychiatry; Emergency Provider Physician Assistant; PCP Nurse Practitioner Family; Visit Provider Psychiatry & Neurology Psychiatry
DX: F33.1 Major depressive disorder, recurrent, moderate (principal); F11.20 Opioid dependence, uncomplicated; R45.851 Suicidal ideations; F43.10 Post-traumatic stress disorder, unspecified; F12.20 Cannabis dependence, uncomplicated; F10.20 Alcohol dependence, uncomplicated; F15.10 Other stimulant abuse, uncomplicated; F41.1 Generalized anxiety disorder; F60.89 Other specific personality disorders; F17.210 Nicotine dependence, cigarettes, uncomplicated; Z56.0 Unemployment, unspecified; Z91.410 Personal history of adult physical and sexual abuse; S50.02XA Contusion of left elbow, initial encounter; S00.83XA Contusion of other part of head, initial encounter; Y04.2XXA Assault by strike against or bumped into by another person, initial encounter; Y92.488 Other paved roadways as the place of occurrence of the external cause; V48.0XXA Car driver injured in noncollision transport accident in nontraffic accident, initial encounter
CPT/HCPCS: 70450; 70486; 72125; 73060; 73080; 80053; 80306; 80307; 84703; 85025; 96360; 97150; 97165; 99285; J7030